=== PATIENT | female | born 1950 | race Caucasian/White ===

== ENCOUNTER 2016-07-13 17:25 | Emergency (ER) | payer MEDICARE, MEDICAID, OTHER ==
--- NOTE | 2016-07-13 18:59 | ED Physician Chart ---
Chief Complaint/HPI - Patient Information Date Seen:: 07/13/16 Time Seen:: 18:35 Chief Complaint:: sensation of impending syncope History of Present Illness:: patient developed sensation of impending syncope and blurred vision which she considered to be a hypoglycemic reaction and then took two packs of sugar. No low blood sugar documented. Accucheck here 106. Allergies:: Allergies Allergy/AdvReac Type Severity Reaction Status Date / Time erythromycin base Allergy Verified 07/13/16 17:38 Penicillins Allergy Verified 07/13/16 17:39 Sulfa (Sulfonamide Allergy Verified 07/13/16 17:38 Antibiotics) Vitals:: Vital Signs - 8 hr 07/13/16 17:40 Temp 98.2 F HR 80 RR 19 BP 127/67 O2 Sat % 96 Historian:: Patient Review:: Nurse's Note Reviewed Review of Systems - Review of Systems General/Constitutional: No fever, No chills, Weakness Skin: No skin lesions Head: No headache Eyes: Acuity change ENT: No earache Neck: No neck pain, No swelling Cardio Vascular: No chest pain Pulmonary: No SOB GI: No nausea, No vomiting G/U: No dysuria Musculoskeletal: No bone or joint pain, No back pain Endocrine: No polyuria, No polydipsia Psychiatric: Prior psych history Hematopoietic: No bruising Allergic/Immuno: No urticaria, No angioedema Neurological: No syncope, Other (sensation of near syncope) Past Medical History - Past Medical History Past Medical History: HTN, Other (fibromyalgia) Family History: HTN, Other (rheumatoid arthritis) Social History: Smoker, Care Facility Surgical History: other (feet; back; neck) Psychiatricy History: Bipolar, Other (schizoaffective) Medication: Reviewed Physical Exam - Physical Examination General/Constitutional: Well-developed, well-nourished, Alert, No distress Head: Atraumatic Eyes: Lids, conjuctiva normal, PERRL Skin: Nl inspection, No rash, No skin lesions, No ecchymosis ENMT: External ears, nose nl, TM canals nl, Nasal exam nl, Lips, teeth, gums nl , Oropharynx nl, Tonsils nl Neck: No nuchal rigidity Respiratory: Nl effort/Exclusion, Clear to Auscultation, No Wheeze/Rhonchi/Rales Cardio Vascular: RRR, No murmur, gallop, rubs GI: No tenderness/rebounding/guarding, No organomegaly, No hernia, Normal BS's : No CVA tenderness Extremities: Normal digits & nails Neuro/Psych: No focal deficits Labs/Radiology/EKG Results - Lab Results Results: Laboratory Tests 07/13/16 17:49 POC Glucose 106 H ED Septic Shock - . Is Septic Shock (SBP<90, OR Lactate>4 mmol\L) present?: No - <6hrs of presentation: Vital Signs: Vital Signs - 8 hr 07/13/16 17:40 Temp 98.2 F HR 80 RR 19 BP 127/67 O2 Sat % 96 Reassessment (Disposition) - Reassessment Reassessment Condition:: Improved - Diagnosis Diagnosis:: hypoglycemia, resolved - Aftercare/Follow up Instructions Aftercare/Follow-Up Instructions:: Refer to Discharge Instructions - Patient Disposition Discharge/Transfer:: Residential/Boarding Care Condition at Disposition:: Stable, Improved
[2016-07-13 20:56] LABS: % EOSINOPHILS 7.6 % (0.0-5.0); % LYMPHOCYTES 38.5 % (20.0-50.0); % MONOCYTES 8.3 % (2.0-10.0); % NEUTROPHILS 44.6 % (40.0-80.0); HEMATOCRIT 39.7 % (35.0-45.0); HEMOGLOBIN 13.1 gm/dL (11.7-16.1); MEAN CELL VOLUME 82.7 fl (81-100); MEAN CORPUSCULAR HEMOGLOBIN 27.2 pg (27.0-31.0); MEAN CORPUSCULAR HGB CONC 32.9 pg (28.0-36.0); MEAN PLATELET VOLUME 8.5 fl; NEUTROPHILE ABSOLUTE 2.9 Th/cmm (1.8-8.0); PLATELET COUNT 199 Th/cmm (150-400); RED CELL DISTRIBUTION WIDTH 14.4 % (11.5-20.0); WHITE BLOOD COUNT 6.5 Th/cmm (4.8-10.8)
[2016-07-13 21:10] LABS: ANION GAP 7.3 (7.0-16.0); BUN - UREA NITROGEN 17 mg/dL (7-25); BUN/CREATININE RATIO 24.3; CALCIUM SERUM 9.3 mg/dL (8.6-10.3); CARBON DIOXIDE 29.1 mEq/L (21.0-31.0); CHLORIDE 102 mEq/L (98-107); CREATININE - SERUM 0.7 mg/dL (0.6-1.2); GLUCOSE 90 mg/dL (70-105); POTASSIUM SERUM 4.4 mEq/L (3.5-5.1); SODIUM SERUM 134 mEq/L (136-145)
== END 2016-07-13 22:05 | disposition home or self-care (01) ==
LOC: ER 17:25
DX: E16.2 Hypoglycemia, unspecified (principal); I10 Essential (primary) hypertension; F31.9 Bipolar disorder, unspecified; F25.9 Schizoaffective disorder, unspecified; M79.7 Fibromyalgia; F17.200 Nicotine dependence, unspecified, uncomplicated; Z88.0 Allergy status to penicillin; Z88.1 Allergy status to other antibiotic agents; Z88.2 Allergy status to sulfonamides
CPT/HCPCS: 36415-UA; 80048-TC; 82948-90; 85025-TC; Z7502

== ENCOUNTER 2018-06-05 17:18 | Inpatient (IN) | payer MEDICARE, MEDICAID ==
[2018-06-05 17:59] LABS: % BASOPHILS 0.7 % (0.0-2.0); % EOSINOPHILS 6.7 % (0.0-5.0); % LYMPHOCYTES 26.9 % (20.0-50.0); % MONOCYTES 8.4 % (2.0-10.0); % NEUTROPHILS 57.3 % (40.0-80.0); EOSINOPHILE ABSOLUTE 0.4 Th/cmm (0.1-0.4); HEMATOCRIT 40.7 % (41.0-60); LYMPHOCYTE ABSOLUTE 1.6 Th/cmm (1.5-3.0); MEAN CELL VOLUME 86.6 fl (81-100); MEAN CORPUSCULAR HEMOGLOBIN 29.7 pg (27.0-31.0); MEAN CORPUSCULAR HGB CONC 34.3 pg (28.0-36.0); MEAN PLATELET VOLUME 8.3 fl; MONOCYTE ABSOLUTE 0.5 Th/cmm (0.3-1.0); NEUTROPHILE ABSOLUTE 3.5 Th/cmm (1.8-8.0); PLATELET COUNT 170 Th/cmm (150-400); RED CELL DISTRIBUTION WIDTH 12.8 % (11.5-20.0)
[2018-06-05 18:14] LABS: ALB/GLOB RATIO 1.8 (1.0-1.8); ALBUMIN 3.9 gm/dL (3.7-5.3); ALKALINE PHOSPHATASE 73 U/L (34-104); ANION GAP 15.1 (7.0-16.0); BILIRUBIN,TOTAL 0.2 mg/dL (0.3-1.0); BUN - UREA NITROGEN 22 mg/dL (7-25); CALCIUM SERUM 8.8 mg/dL (8.6-10.3); CARBON DIOXIDE 22.8 mEq/L (21.0-31.0); CHLORIDE 95 mEq/L (98-107); CREATININE - SERUM 0.6 mg/dL (0.6-1.2); CREATININE KINASE 107 U/L (30-223); GFR AFRICAN-AMERICAN > 60.0 ml/min (>90); GFR NON AFRICAN-AMERICAN > 60.0 ml/min; GLUCOSE 131 mg/dL (70-105); POTASSIUM SERUM 3.9 mEq/L (3.5-5.1); SGOT 17 U/L (13-39); SGPT/ALT 9 U/L (7-52); SODIUM SERUM 129 mEq/L (136-145); TOTAL PROTEIN,SERUM 6.1 gm/dL (6.0-8.3)
[2018-06-05 18:20] LABS: TROP I < 0.01 ng/mL (0.01-0.05)
[2018-06-05 18:24] LABS: INR 0.95 (0.5-1.4); PROTHROMBIN TIME (TEST) 9.9 SECONDS (9.5-11.5)
--- NOTE | 2018-06-05 18:39 | ED Physician Chart ---
ED Chief Complaint/HPI - Patient Information Date Seen:: 06/05/18 Time Seen:: 17:50 Chief Complaint:: Agitation History of Present Illness:: onset x 3 days of agitation, aggressive behavior, and intermittent sharp, MS type LBP; no report of trauma, H/As, neck pain, cough, C/P, SOB, Abd. Pain, A/N/ V/D/C, fever, chills, or urinary s/s Allergies:: Allergies Allergy/AdvReac Type Severity Reaction Status Date / Time erythromycin base Allergy Verified 06/05/18 17:40 Penicillins Allergy Verified 06/05/18 17:40 Sulfa (Sulfonamide Allergy Verified 06/05/18 17:40 Antibiotics) Vitals:: Vital Signs - 8 hr 06/05/18 17:51 Temp 97.5 F HR 84 RR 16 BP 124/82 O2 Sat % 98 Historian:: Patient, EMS Review:: Nurse's Note Reviewed, Old Chart Reviewed, EMS run form Reviewed ED Review of Systems - Review of Systems General/Constitutional: Fever, No chills, No weight loss, Weakness, No diaphoresis, No edema, No loss of appetite Skin: No skin lesions, No rash, No bruising Head: No headache, No light-headedness Eyes: No loss of vision, No pain, No diplopia ENT: No earache, No nasal drainage, No sore throat, No tinnitus Neck: No neck pain, No swelling, No thyromegaly, No stiffness, No mass noted Cardio Vascular: No chest pain, No palpitations, No PND, No orthopnea, No edema Pulmonary: No SOB, No cough, No sputum, No wheezing GI: No nausea, No vomiting, No diarrhea, No pain, No melena, No hematochezia, No constipation, No hematemesis G/U: Dysuria, No frequency, No hematuria, No nacturia Occupational Therapy Specialist: No vaginal discharge, No abnormal vaginal bleed, No contraction Musculoskeletal: No bone or joint pain, Back pain, No muscle pain Endocrine: No polyuria, No polydipsia Psychiatric: Prior psych history, No depression, Anxiety, No suicidal ideation, No homicidal ideation, No auditory hallucination, No visual hallucination Hematopoietic: No bruising, No lymphadenopathy Allergic/Immuno: No urticaria, No angioedema Neurological: No syncope, No focal symptoms, Weakness, No paresthesia, No headache, No seizure, No dizziness, Confusion, No vertigo ED Past Medical History - Past Medical History Obtainable: Yes Past Medical History: HTN, DM, CAD, Dyslipidemia, PUD/GERD, Arthritis, Dementia Family History: HTN Social History: Non Smoker, No Alcohol, No Drug Use, Single, Care Facility Surgical History: None, other (Back Surgery) Psychiatricy History: Bipolar, Dementia Medication: Reviewed Family Medical History - Family Member Mother History Unknown: Yes ED Physical Exam - Physical Examination General/Constitutional: Awake, Well-developed, well-nourished, Alert, No distress, GCS 15, Non-toxic appearing, Ambulatory Head: Atraumatic Eyes: Lids, conjuctiva normal, PERRL, EOMI Skin: Nl inspection, No rash, No skin lesions, No ecchymosis, Well hydrated, No lymphadenopathy ENMT: External ears, nose nl, TM canals nl, Nasal exam nl, Lips, teeth, gums nl , Oropharynx nl, Tonsils nl Neck: Nontender, Full ROM w/o pain, No JVD, No nuchal rigidity, No bruit, No mass, No stridor Respiratory: Nl effort/Exclusion, Clear to Auscultation, No Wheeze/Rhonchi/Rales Cardio Vascular: RRR, No murmur, gallop, rubs, NL S1 S2, Carotid/Femoral/Distal pulses equal bilaterally GI: No tenderness/rebounding/guarding, No organomegaly, No hernia, Normal BS's, Nondistended, No mass/bruits, No McBurney tenderness Other GI comments:: no pulsatile masses; good BS : No CVA tenderness Extremities: No tenderness or effusion, Full ROM, normal strength in all extremities, No edema, Normal digits & nails Neuro/Psych: Alert/oriented, DTR's symmetric, Normal sensory exam, Normal motor strength, Judgement/insight normal, Mood normal, Normal gait, No focal deficits Other Neuro/Psych comments:: + Psychomotor Agitation; no SIs; Mood/Affect: Labile Misc: Normal back, No paraspinal tenderness ED Labs/Radiology/EKG Results - Lab Results Results: Laboratory Tests 06/05/18 06/05/18 06/05/18 17:40 17:40 17:40 WBC 6.0 RBC 4.70 Hgb 14.0 Hct 40.7 L MCV 86.6 MCH 29.7 MCHC Differential 34.3 RDW 12.8 Plt Count 170 MPV 8.3 Neutrophils % 57.3 Lymphocytes % 26.9 Monocytes % 8.4 Eosinophils % 6.7 H Basophils % 0.7 PT 9.9 INR 0.95 PTT (Actin FS) 26.5 Sodium 129 L Potassium 3.9 Chloride 95 L Carbon Dioxide 22.8 Anion Gap 15.1 BUN 22 Creatinine 0.6 Est GFR ( Amer) > 60.0 Est GFR (Non-Af Amer) > 60.0 BUN/Creatinine Ratio 36.7 Glucose 131 H Whole Bld Lactic Acid Calcium 8.8 Total Bilirubin 0.2 L AST 17 ALT 9 Alkaline Phosphatase 73 Creatine Kinase 107 Troponin I Total Protein 6.1 Albumin 3.9 Globulin 2.2 Albumin/Globulin Ratio 1.8 06/05/18 17:40 WBC RBC Hgb Hct MCV MCH MCHC Differential RDW Plt Count MPV Neutrophils % Lymphocytes % Monocytes % Eosinophils % Basophils % PT INR PTT (Actin FS) Sodium Potassium Chloride Carbon Dioxide Anion Gap BUN Creatinine Est GFR ( Amer) Est GFR (Non-Af Amer) BUN/Creatinine Ratio Glucose Whole Bld Lactic Acid 2.05 H* Calcium Total Bilirubin AST ALT Alkaline Phosphatase Creatine Kinase Troponin I < 0.01 L Total Protein Albumin Globulin Albumin/Globulin Ratio Comments:: Reviewed - Radiology Results Comments:: NAD - EKG Interpretations EKG Time:: 17:46 Rate & Rhythm: 78; NSR Comments:: T-Wave Inversions; non-specific st-t changes ED Septic Shock - . Is Septic Shock (SBP<90, OR Lactate>4 mmol\L) present?: No - <6hrs of presentation: Vital Signs: Vital Signs - 8 hr 06/05/18 17:51 Temp 97.5 F HR 84 RR 16 BP 124/82 O2 Sat % 98 ED Reassessment (Disposition) - Reassessment Reassessment Condition:: Improved - Diagnosis Diagnosis:: Myocardial Ischemia; Hyponatremia; Hyperglycemia; Lactic Acidosis; DM; HTN; Dementia; UTI; Dehydration; Medical Clearance; Agitation; Psychosis; Anxiety Disorder; BiPolar Disorder - Aftercare/Follow up Instructions Aftercare/Follow-Up Instructions:: Counseled pt regarding lab results/diagnosis & need follow up, Counseled pt & family regarding lab results/diagnosis & need follow up - Patient Disposition Discharge/Transfer:: Acute Care w/in this hosp Admitted to:: [facility] Condition at Disposition:: Stable, Improved
[2018-06-05 19:29] LABS: URINE SOURCE MIDSTREAM
[2018-06-05 19:34] LABS: URINE BILIRUBIN NEGATIVE (NEGATIVE); URINE BLOOD NEGATIVE (NEGATIVE); URINE GLUCOSE (UA) NEGATIVE (NEGATIVE); URINE KETONE NEGATIVE (NEGATIVE); URINE LEUKOCYTE ESTERASE NEGATIVE (NEGATIVE); URINE NITRATE NEGATIVE (NEGATIVE); URINE PH 6.5 (4.6 - 8.0); URINE PROTEIN NEGATIVE (NEGATIVE); URINE UROBILINOGEN 0.2 E.U./dL (0.2 - 1.0)
[2018-06-05 19:44] LABS: URINE CLARITY CLEAR (CLEAR); URINE COLOR YELLOW; URINE MICROSCOPIC INDICATED? YES
[2018-06-05 19:48] LABS: URINE BACTERIA FEW /hpf (NONE SEEN); URINE EPITHELIAL CELLS FEW /lpf (FEW); URINE RBC 0-2 /hpf (0-5); URINE WBC 0-2 /hpf (0-5)
[2018-06-05] MEDS ORDERED: Levofloxacin 500mg/100mL 500 MG/100 ML BAG IV ONE ×2 (19:54→20:07)
[2018-06-05] MEDS ORDERED: Hydrocodone/APAP 5mg/325mg Tab PO ONE (20:28)
[2018-06-05] MEDS ORDERED: Hydrocodone/APAP 5mg/325mg Tab ONE (20:36)
[2018-06-05 23:36] VITALS: BP 138/91
[2018-06-06] MEDS: INSULIN ASPART SLIDING SCALE 100 UNITS/ML UNIT SUBQ SCH ×4 (06:40→20:59)
[2018-06-06] MEDS: Pantoprazole 40 mg EC Tab PO SCH (07:01)
[2018-06-06 07:18] LABS: CHOLESTEROL 207 mg/dL (<200); TRIGLYCERIDES 243 mg/dL (<150)
--- NOTE | 2018-06-06 07:57 | Diagnostic Imaging Report ---
CT lumbar spine without IV contrast HISTORY: Back pain, rule out aortic aneurysm COMPARISON: None Technique: Axial images were obtained from the lower thoracic spine to the upper sacrum without IV contrast. Reconstructions were made. total DLP: [id number], [id number] Findings: Streak artifact from surgical hardware limits the examination. There is evidence of posterior fusion extending from L3 through S1 with intrapedicular screws and vertical rods. There are also disc spacers extending from L3 through S1. There is evidence of fracture of the left S1 interpedicular screw and also probable fracture of the right interpedicular S1 screw. No abnormal lucencies surrounding the hardware. No gross osseous fracture identified. Extensive multilevel degenerative changes are seen including advanced disc space loss of height at L1/L2 with diffuse endplate sclerotic changes and vacuum phenomena. There is also 2 mm retrolisthesis of L1 on L2 and 2 mm anterolisthesis of L5 on S1. Limited assessment of the abdominal aorta demonstrates no gross aneurysm based on images provided. Moderate atherosclerosis is noted. Degenerative changes of the SI joints are noted. IMPRESSION: Evidence of posterior spinal fusion extending from L3 through S1 with streak artifact limiting the examination. There is fracture of the left S1 interpedicular screw and probable additional fracture or right S1 interpedicular screw. Findings are age indeterminate and may be chronic. Please correlate with clinical history and old exams. No evidence of an acute osseous fracture. Extensive degenerative changes most pronounced at L1/L2 with extensive endplate sclerotic changes. 2 mm retrolisthesis of L1 on L2 and additional 2 mm anterolisthesis of L5 on S1 likely due to combination of degenerative etiologies and postsurgical sequela. Moderate atherosclerosis is noted with no gross aneurysm identified. If necessary follow-up exam such as CT angiography may be obtained.
[2018-06-06 08:18] LABS: HDL -HIGH DENSITY LIPOPROTEIN 74 mg/dL (23-92)
--- NOTE | 2018-06-06 08:33 | Diagnostic Imaging Report ---
Portable chest x-ray History: Pain Allowing for portable technique the heart size is normal. No focal pulmonary parenchymal processes. No hilar or mediastinal abnormalities. Surgical changes seen within the cervical spine. Impression: No acute abnormalities.
--- NOTE | 2018-06-06 15:20 | History & Physical ---
ADMIT DATE: 06/06/2018 CHIEF COMPLAINT: Increased agitation. HISTORY OF PRESENT ILLNESS: This is a 68-year-old patient female with history of diabetes, hypertension, CAD, hypercholesterolemia, GERD, Alzheimer's. ____ Dr. Bronson. The patient is not a best historian, complaining of back pain. Denies chest pain, shortness of breath. PAST MEDICAL HISTORY: As mentioned in history of present illness. PAST SURGICAL HISTORY: Multiple surgeries including back, neck as well as a foot surgery. ALLERGIES: ERYTHROMYCIN, PENICILLIN AND SULFA. MEDICATIONS: Amlodipine, BuSpar, Depakote, Aricept, duloxetine, gabapentin, ibuprofen, insulin Lantus, Namenda, omeprazole, Seroquel, temazepam. FAMILY HISTORY: Noncontributory. 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 No intravenous drug use. The patient did lot of job including nursing according to the patient, one time with many children, and cannot tell me how many. REVIEW OF SYSTEMS: GENERAL: The patient denies any constitutional symptoms. HEENT: No blurred vision or pain. LUNGS: No diagnosis of COPD or asthma. Chronic smoker. HEART: The patient with hypertension and CAD. ABDOMEN: No nausea, vomiting, pain. GENITOURINARY: The patient denies increased frequency or dysuria. NEUROLOGIC: No headache, seizure or syncope. PSYCHIATRIC: As stated above. PHYSICAL EXAMINATION: VITAL SIGNS: Blood pressure 146/90, respirations 20, pulse 80, temperature 97.6. GENERAL: Elderly female, morbidly obese. NECK: Supple. No mass. LUNGS: Equal breath sounds, otherwise clear to auscultation. HEART: Regular rate and rhythm with systolic ejection murmur. ABDOMEN: Soft, guarded. EXTREMITIES: Positive excoriation. NEUROLOGIC: Limited. LABORATORY DATA: WBC 6, hemoglobin 14, platelets 170. PT, PTT within normal range. Sodium 129, potassium 3.9, BUN 22, creatinine 0.6. Troponin was negative. Cholesterol 207, triglycerides 243. UA essentially negative. ASSESSMENT AND PLAN: Coronary artery disease, diabetes, obesity, hypertension, hypercholesterolemia, gastroesophageal reflux disease, Alzheimer's, psych disorder, hyponatremia, low back pain. We will provide the patient with some medical treatment including ____ drugs as well as bronchodilator treatment. Continue on blood pressure medication. We will make some adjustment and continue on insulin sliding scale. Continue with current care. We will follow the patient closely. Medications were reconciled. [facility]# [id number]
--- NOTE | 2018-06-06 22:58 | Psychiatric Evaluation ---
DATE OF SERVICE: 06/06/2018 PSYCHIATRIC EVALUATION AND EXAMINATION IDENTIFYING DATA: The patient is a 68-year-old woman, resident of a [facility]. Information obtained by directly interviewing the patient as well as reviewing the admission papers and they are reliable. JUSTIFICATION OF HOSPITALIZATION: The patient has been admitted over here for depression and psychosis. CHIEF COMPLAINT: "I am having mood swings and feeling frustrated, I am depressed, I am bipolar, I am schizophrenic, I need some help." HISTORY OF PRESENT ILLNESS: This is one of multiple psychiatric hospitalizations for this patient, who has been diagnosed to have schizoaffective disorder and is being followed up by Dr. Garcia at [facility]. The patient is reporting that even though she has been on the current medications such as the Depakote, BuSpar, duloxetine, gabapentin, and Seroquel, she has been feeling well and has been feeling frustrated. The patient is reported to have been very paranoid and has been going off stating that someone is out there to harm her. The patient is also reported to have multiple medical problems such as diabetes, hypertension, coronary artery disease, hypercholesterolemia, and GERD. The patient is complaining that she is having pain all over the body. PAST PSYCHIATRIC HISTORY: Please refer to the above. The patient was here in the hospital, under Dr. Garcia's care before. MEDICAL HISTORY AND PHYSICAL EXAMINATION: Requested to be done by Dr. Flores and is noted to be significant for diabetes mellitus, hypertension, coronary artery disease, hypercholesterolemia, and GERD. SUBSTANCE ABUSE HISTORY: None. SOCIAL HISTORY: The patient is a resident of the half-way facility. The patient is stating that she has children all over, but has not any contact with them. STRENGTH AND ASSETS: The patient is motivated. MENTAL STATUS EXAMINATION: The patient is a 68-year-old, looking her stated age, cooperative. Eye contact is fair. Mood is noted to be irritable. Affect is constricted. Insight and judgment at this time are noted to be still impaired. Impulse control is noted to be limited. The patient has paranoid delusions, but denies any command hallucinations. The patient is stating that she is feeling more depressed at this time. The patient is alert and oriented x 3. Short-term and long-term memory appear to be fair. DIAGNOSTIC IMPRESSION: AXIS I: Schizoaffective disorder by history. AXIS II: None. AXIS III: As per Dr. Flores. IMMEDIATE TREATMENT PLAN: The patient is going to be observed on the inpatient unit. Provided with supportive psychotherapy. The patient is going to be closely monitored. We encouraged to verbalize the concerns rather than to act out. Once stabilized, the patient is going to be discharged to [facility] to be followed up on an outpatient basis. JOB# [id number]
[2018-06-07] MEDS: INSULIN ASPART SLIDING SCALE 100 UNITS/ML UNIT SUBQ SCH ×5 (06:52→21:14)
[2018-06-07] MEDS: Pantoprazole 40 mg EC Tab PO SCH (06:54)
--- NOTE | 2018-06-07 09:30 | Progress Notes ---
DATE: 06/07/2018 PSYCHIATRIC PROGRESS NOTE SUBJECTIVE: Staff was spoken to. The patient is interviewed. Mood is noted to be irritable. Affect is constricted. The patient is isolative and withdrawn. Insight and judgment at this time are noted to be still impaired. The patient is stating that she has been having pain all over the body. The patient is isolative and withdrawn. The patient is currently on valproic acid 250 mg twice a day and duloxetine 30 mg. In view of the patient's continued depression, I am planning to change the duloxetine to 60 mg and the patient is going to be closely monitored. The patient is stating that her mouth is very, very dry and could not tolerate too many medications and hence it is decided to discontinue the BuSpar and continue the patient with a low dose of Ativan and follow her up. ASSESSMENT: The patient is still depressed and feeling frustrated and is not ready to be discharged to a lower level of care. PLAN: To continue the patient with supportive therapy. I encouraged the patient to verbalize the concerns rather than to act out. JOB# [id number]
--- NOTE | 2018-06-07 13:37 | Internal Medicine Prog Note ---
Internal Medicine Subjective - Subjective Patient seen and examined:: with staff, chart reviewed Patient is:: awake, verbal, non-interactive Per staff patient has:: no adverse event, no episodes of fall, poor appetite, tolerating meds Internal Medicine Objective - Results Result Diagrams: 06/05/18 17:40 06/05/18 17:40 Recent Labs: Laboratory Last Values WBC 6.0 Th/cmm (4.8-10.8) 06/05/18 17:40 RBC 4.70 Mil/cmm (3.80-5.20) 06/05/18 17:40 Hgb 14.0 gm/dL (12-16) 06/05/18 17:40 Hct 40.7 % (41.0-60) L 06/05/18 17:40 MCV 86.6 fl (81-100) 06/05/18 17:40 MCH 29.7 pg (27.0-31.0) 06/05/18 17:40 MCHC Differential 34.3 pg (28.0-36.0) 06/05/18 17:40 RDW 12.8 % (11.5-20.0) 06/05/18 17:40 Plt Count 170 Th/cmm (150-400) 06/05/18 17:40 MPV 8.3 fl 06/05/18 17:40 Neutrophils % 57.3 % (40.0-80.0) 06/05/18 17:40 Lymphocytes % 26.9 % (20.0-50.0) 06/05/18 17:40 Monocytes % 8.4 % (2.0-10.0) 06/05/18 17:40 Eosinophils % 6.7 % (0.0-5.0) H 06/05/18 17:40 Basophils % 0.7 % (0.0-2.0) 06/05/18 17:40 PT 9.9 SECONDS (9.5-11.5) 06/05/18 17:40 INR 0.95 (0.5-1.4) 06/05/18 17:40 PTT (Actin FS) 26.5 SECONDS (26.0-38.0) 06/05/18 17:40 Sodium 129 mEq/L (136-145) L 06/05/18 17:40 Potassium 3.9 mEq/L (3.5-5.1) 06/05/18 17:40 Chloride 95 mEq/L (98-107) L 06/05/18 17:40 Carbon Dioxide 22.8 mEq/L (21.0-31.0) 06/05/18 17:40 Anion Gap 15.1 (7.0-16.0) 06/05/18 17:40 BUN 22 mg/dL (7-25) 06/05/18 17:40 Creatinine 0.6 mg/dL (0.6-1.2) 06/05/18 17:40 Est GFR ( Amer) > 60.0 ml/min (>90) 06/05/18 17:40 Est GFR (Non-Af Amer) > 60.0 ml/min 06/05/18 17:40 BUN/Creatinine Ratio 36.7 06/05/18 17:40 Glucose 131 mg/dL (70-105) H 06/05/18 17:40 POC Glucose 85 MG/DL (70 - 105) 06/07/18 06:04 Whole Bld Lactic Acid 2.06 mmol/L (0.60-1.99) H* 06/05/18 20:36 Calcium 8.8 mg/dL (8.6-10.3) 06/05/18 17:40 Total Bilirubin 0.2 mg/dL (0.3-1.0) L 06/05/18 17:40 AST 17 U/L (13-39) 06/05/18 17:40 ALT 9 U/L (7-52) 06/05/18 17:40 Alkaline Phosphatase 73 U/L (34-104) 06/05/18 17:40 Creatine Kinase 107 U/L (30-223) 06/05/18 17:40 Troponin I < 0.01 ng/mL (0.01-0.05) L 06/05/18 17:40 Total Protein 6.1 gm/dL (6.0-8.3) 06/05/18 17:40 Albumin 3.9 gm/dL (3.7-5.3) 06/05/18 17:40 Globulin 2.2 gm/dL 06/05/18 17:40 Albumin/Globulin Ratio 1.8 (1.0-1.8) 06/05/18 17:40 Triglycerides 243 mg/dL (<150) H 06/05/18 17:40 Cholesterol 207 mg/dL (<200) H 06/05/18 17:40 LDL Cholesterol Direct 124 mg/dL (75-193) 06/05/18 17:40 HDL Cholesterol 74 mg/dL (23-92) 06/05/18 17:40 Urine Source MIDSTREAM 06/05/18 18:30 Urine Color YELLOW 06/05/18 18:30 Urine Clarity CLEAR (CLEAR) 06/05/18 18:30 Urine pH 6.5 (4.6 - 8.0) 06/05/18 18:30 Ur Specific [place] 1.010 (1.005-1.030) 06/05/18 18:30 Urine Protein NEGATIVE mg/dL (NEGATIVE) 06/05/18 18:30 Urine Glucose (UA) NEGATIVE mg/dL (NEGATIVE) 06/05/18 18:30 Urine Ketones NEGATIVE mg/dL (NEGATIVE) 06/05/18 18:30 Urine Blood NEGATIVE (NEGATIVE) 06/05/18 18:30 Urine Nitrate NEGATIVE (NEGATIVE) 06/05/18 18:30 Urine Bilirubin NEGATIVE (NEGATIVE) 06/05/18 18:30 Urine Urobilinogen 0.2 E.U./dL (0.2 - 1.0) 06/05/18 18:30 Ur Leukocyte Esterase NEGATIVE (NEGATIVE) 06/05/18 18:30 Urine RBC 0-2 /hpf (0-5) 06/05/18 18:30 Urine WBC 0-2 /hpf (0-5) 06/05/18 18:30 Ur Epithelial Cells FEW /lpf (FEW) 06/05/18 18:30 Urine Bacteria FEW /hpf (NONE SEEN) 06/05/18 18:30 - Physical Exam Vitals and I&O: Vital Signs Temp 0 F 06/07/18 06:03 Pulse 72 06/07/18 10:00 Resp 18 06/06/18 20:14 BP 149/92 06/07/18 10:00 Pulse Ox 96 06/06/18 20:14 Intake & Output 06/06/18 06/07/18 06/07/18 18:59 06:59 18:59 Intake Total 1300 120 Output Total 1 Balance 1300 119 Weight (lbs) 68.039 kg Intake: Oral 1300 120 Output: Urine/Stool Mix 1 Other: # Voids 3 3 # Bowel Movements 0 0 Weight Source Bedscale Active Medications: Current Medications Amlodipine Besylate (Norvasc) 5 mg PO DAILY [facility] Stop: 08/05/18 08:59 Last Admin: 06/07/18 10:00 Dose: 5 mg Divalproex Sodium (Depakote Dr) 250 mg PO BID [facility]; Protocol Stop: 08/05/18 08:59 Last Admin: 06/07/18 08:58 Dose: 250 mg Donepezil HCl (Aricept) 10 mg PO HS [facility] Stop: 08/05/18 20:59 Last Admin: 06/06/18 20:58 Dose: 10 mg Duloxetine HCl (Cymbalta) 60 mg PO DAILY [facility]; Protocol Stop: 08/06/18 08:59 Last Admin: 06/07/18 08:57 Dose: 60 mg Gabapentin (Neurontin) 100 mg PO TID [facility] Stop: 08/05/18 08:59 Last Admin: 06/07/18 08:58 Dose: 100 mg Ibuprofen (Motrin) 800 mg PO Q6H PRN PRN Reason: Pain (Severe) Stop: 08/05/18 00:30 Last Admin: 06/07/18 09:10 Dose: 800 mg Insulin Aspart (Novolog Insulin Sliding Scale) 0 units SUBQ ACHS [facility]; Protocol Stop: 08/05/18 07:29 Last Admin: 06/07/18 12:16 Dose: Not Given Lorazepam (Ativan) 0.5 mg PO Q4HR PRN; Protocol PRN Reason: Anxiety Stop: 07/06/18 00:24 Last Admin: 06/07/18 10:17 Dose: 0.5 mg Memantine (Namenda) 10 mg PO DAILY [facility] Stop: 08/05/18 08:59 Last Admin: 06/07/18 08:58 Dose: 10 mg Pantoprazole Sodium (Protonix) 40 mg PO QDAC [facility] Stop: 08/05/18 07:29 Last Admin: 06/07/18 06:54 Dose: 40 mg Quetiapine Fumarate (Seroquel) 100 mg PO BID [facility]; Protocol Stop: 08/05/18 08:59 Last Admin: 06/07/18 08:58 Dose: 100 mg Temazepam (Restoril) 15 mg PO HS [facility]; Protocol Stop: 08/05/18 20:59 Last Admin: 06/06/18 20:58 Dose: 15 mg General: alert HEENT: NC/AT, PERRLA, EOMI Neck: Supple, No JVD Lungs: CTAB Cardiovascular: RRR, Normal S1, Normal S2, with murmur Abdomen: soft, non-tender, globular Extremities: excoriation Neurological: no change Internal Medicine Assmt/Plan - Assessment Assessment: ASSESSMENT AND PLAN: Coronary artery disease, diabetes, obesity, hypertension, hypercholesterolemia, gastroesophageal reflux disease, Alzheimer's, psych disorder, hyponatremia, low back pain. - Plan Plan: We will provide the patient with some medical treatment including bronchodilator treatment. Continue on blood pressure medication. We will make some adjustment and continue on insulin sliding scale. Continue with current care. We will follow the patient closely. Medications were reconciled.
[2018-06-08] MEDS: Pantoprazole 40 mg EC Tab PO SCH (06:32)
[2018-06-08] MEDS: INSULIN ASPART SLIDING SCALE 100 UNITS/ML UNIT SUBQ SCH ×4 (06:42→20:58)
--- NOTE | 2018-06-08 15:01 | Internal Medicine Prog Note ---
Internal Medicine Subjective - Subjective Patient seen and examined:: with staff, chart reviewed Patient is:: awake, verbal, non-interactive Per staff patient has:: no adverse event, no episodes of fall, poor appetite, tolerating meds Internal Medicine Objective - Results Result Diagrams: 06/05/18 17:40 06/05/18 17:40 Recent Labs: Laboratory Last Values WBC 6.0 Th/cmm (4.8-10.8) 06/05/18 17:40 RBC 4.70 Mil/cmm (3.80-5.20) 06/05/18 17:40 Hgb 14.0 gm/dL (12-16) 06/05/18 17:40 Hct 40.7 % (41.0-60) L 06/05/18 17:40 MCV 86.6 fl (81-100) 06/05/18 17:40 MCH 29.7 pg (27.0-31.0) 06/05/18 17:40 MCHC Differential 34.3 pg (28.0-36.0) 06/05/18 17:40 RDW 12.8 % (11.5-20.0) 06/05/18 17:40 Plt Count 170 Th/cmm (150-400) 06/05/18 17:40 MPV 8.3 fl 06/05/18 17:40 Neutrophils % 57.3 % (40.0-80.0) 06/05/18 17:40 Lymphocytes % 26.9 % (20.0-50.0) 06/05/18 17:40 Monocytes % 8.4 % (2.0-10.0) 06/05/18 17:40 Eosinophils % 6.7 % (0.0-5.0) H 06/05/18 17:40 Basophils % 0.7 % (0.0-2.0) 06/05/18 17:40 PT 9.9 SECONDS (9.5-11.5) 06/05/18 17:40 INR 0.95 (0.5-1.4) 06/05/18 17:40 PTT (Actin FS) 26.5 SECONDS (26.0-38.0) 06/05/18 17:40 Sodium 129 mEq/L (136-145) L 06/05/18 17:40 Potassium 3.9 mEq/L (3.5-5.1) 06/05/18 17:40 Chloride 95 mEq/L (98-107) L 06/05/18 17:40 Carbon Dioxide 22.8 mEq/L (21.0-31.0) 06/05/18 17:40 Anion Gap 15.1 (7.0-16.0) 06/05/18 17:40 BUN 22 mg/dL (7-25) 06/05/18 17:40 Creatinine 0.6 mg/dL (0.6-1.2) 06/05/18 17:40 Est GFR ( Amer) > 60.0 ml/min (>90) 06/05/18 17:40 Est GFR (Non-Af Amer) > 60.0 ml/min 06/05/18 17:40 BUN/Creatinine Ratio 36.7 06/05/18 17:40 Glucose 131 mg/dL (70-105) H 06/05/18 17:40 POC Glucose 81 MG/DL (70 - 105) 06/08/18 11:58 Whole Bld Lactic Acid 2.06 mmol/L (0.60-1.99) H* 06/05/18 20:36 Calcium 8.8 mg/dL (8.6-10.3) 06/05/18 17:40 Total Bilirubin 0.2 mg/dL (0.3-1.0) L 06/05/18 17:40 AST 17 U/L (13-39) 06/05/18 17:40 ALT 9 U/L (7-52) 06/05/18 17:40 Alkaline Phosphatase 73 U/L (34-104) 06/05/18 17:40 Creatine Kinase 107 U/L (30-223) 06/05/18 17:40 Troponin I < 0.01 ng/mL (0.01-0.05) L 06/05/18 17:40 Total Protein 6.1 gm/dL (6.0-8.3) 06/05/18 17:40 Albumin 3.9 gm/dL (3.7-5.3) 06/05/18 17:40 Globulin 2.2 gm/dL 06/05/18 17:40 Albumin/Globulin Ratio 1.8 (1.0-1.8) 06/05/18 17:40 Triglycerides 243 mg/dL (<150) H 06/05/18 17:40 Cholesterol 207 mg/dL (<200) H 06/05/18 17:40 LDL Cholesterol Direct 124 mg/dL (75-193) 06/05/18 17:40 HDL Cholesterol 74 mg/dL (23-92) 06/05/18 17:40 Urine Source MIDSTREAM 06/05/18 18:30 Urine Color YELLOW 06/05/18 18:30 Urine Clarity CLEAR (CLEAR) 06/05/18 18:30 Urine pH 6.5 (4.6 - 8.0) 06/05/18 18:30 Ur Specific [place] 1.010 (1.005-1.030) 06/05/18 18:30 Urine Protein NEGATIVE mg/dL (NEGATIVE) 06/05/18 18:30 Urine Glucose (UA) NEGATIVE mg/dL (NEGATIVE) 06/05/18 18:30 Urine Ketones NEGATIVE mg/dL (NEGATIVE) 06/05/18 18:30 Urine Blood NEGATIVE (NEGATIVE) 06/05/18 18:30 Urine Nitrate NEGATIVE (NEGATIVE) 06/05/18 18:30 Urine Bilirubin NEGATIVE (NEGATIVE) 06/05/18 18:30 Urine Urobilinogen 0.2 E.U./dL (0.2 - 1.0) 06/05/18 18:30 Ur Leukocyte Esterase NEGATIVE (NEGATIVE) 06/05/18 18:30 Urine RBC 0-2 /hpf (0-5) 06/05/18 18:30 Urine WBC 0-2 /hpf (0-5) 06/05/18 18:30 Ur Epithelial Cells FEW /lpf (FEW) 06/05/18 18:30 Urine Bacteria FEW /hpf (NONE SEEN) 06/05/18 18:30 - Physical Exam Vitals and I&O: Vital Signs Temp 98.2 F 06/08/18 14:00 Pulse 73 06/08/18 14:00 Resp 18 06/08/18 14:00 BP 126/84 06/08/18 14:00 Pulse Ox 96 06/08/18 14:00 Intake & Output 06/07/18 06/08/18 06/08/18 18:59 06:59 18:59 Intake Total 1200 Balance 1200 Intake: Oral 1200 Other: # Bowel Movements 1 Stool Characteristics Formed Brown Active Medications: Current Medications Amlodipine Besylate (Norvasc) 5 mg PO DAILY [facility] Stop: 08/05/18 08:59 Last Admin: 06/08/18 09:24 Dose: 5 mg Divalproex Sodium (Depakote Dr) 250 mg PO BID [facility]; Protocol Stop: 08/05/18 08:59 Last Admin: 06/08/18 09:25 Dose: 250 mg Donepezil HCl (Aricept) 10 mg PO HS [facility] Stop: 08/05/18 20:59 Last Admin: 06/07/18 21:07 Dose: 10 mg Duloxetine HCl (Cymbalta) 60 mg PO DAILY [facility]; Protocol Stop: 08/06/18 08:59 Last Admin: 06/08/18 09:24 Dose: 60 mg Gabapentin (Neurontin) 100 mg PO TID [facility] Stop: 08/05/18 08:59 Last Admin: 06/08/18 13:40 Dose: 100 mg Ibuprofen (Motrin) 800 mg PO Q6H PRN PRN Reason: Pain (Severe) Stop: 08/05/18 00:30 Last Admin: 06/08/18 13:40 Dose: 800 mg Insulin Aspart (Novolog Insulin Sliding Scale) 0 units SUBQ ACHS [facility]; Protocol Stop: 08/05/18 07:29 Last Admin: 06/08/18 12:07 Dose: Not Given Lorazepam (Ativan) 0.5 mg PO Q4HR PRN; Protocol PRN Reason: Anxiety Stop: 07/06/18 00:24 Last Admin: 06/08/18 05:34 Dose: 0.5 mg Memantine (Namenda) 10 mg PO DAILY [facility] Stop: 08/05/18 08:59 Last Admin: 06/08/18 09:24 Dose: 10 mg Pantoprazole Sodium (Protonix) 40 mg PO QDAC [facility] Stop: 08/05/18 07:29 Last Admin: 06/08/18 06:32 Dose: 40 mg Quetiapine Fumarate (Seroquel) 100 mg PO BID [facility]; Protocol Stop: 08/05/18 08:59 Last Admin: 06/08/18 09:24 Dose: 100 mg Temazepam (Restoril) 15 mg PO HS [facility]; Protocol Stop: 08/05/18 20:59 Last Admin: 06/07/18 21:07 Dose: 15 mg General: alert HEENT: NC/AT, PERRLA, EOMI Neck: Supple, No JVD Lungs: CTAB Cardiovascular: RRR, Normal S1, Normal S2, with murmur Abdomen: soft, non-tender, globular Extremities: excoriation Neurological: no change Internal Medicine Assmt/Plan - Assessment Assessment: ASSESSMENT AND PLAN: Coronary artery disease, diabetes, obesity, hypertension, hypercholesterolemia, gastroesophageal reflux disease, Alzheimer's, psych disorder, hyponatremia, low back pain. - Plan Plan: We will provide the patient with some medical treatment including bronchodilator treatment. Continue on blood pressure medication. We will make some adjustment and continue on insulin sliding scale. Continue with current care. We will follow the patient closely. Medications were reconciled. Nutritional Asmnt/Malnutr-PDOC - Dietary Evaluation Malnutrition Findings (Please click <Entered> for more info): Nutritional Asmnt/Malnutrition Start: 06/08/18 10: 50 Text: Status: Active Freq: Protocol: Document 06/08/18 10:50 MMULISMAEL (Rec: 06/08/18 11:06 MMULISMAEL LUTHER- [id number]) Nutritional Asmnt/Malnutrition Patient General Information Nutritional Screening Moderate Risk Diagnosis Psychosis Pertinent Medical Hx/Surgical Hx diabetes, hypertension, CAD, Hypercholesterolemia, GERD, Alzheimers Current Diet Order/ Nutrition Support Regular, NCS Patient / S.O Not Indicated Pertinent Medications Novolog, Protonix Pertinent Labs (06/05) Na 129, TAG 243, Cholesterol 207 Nutritional Hx/Data Height 1.68 m Height (Calculated Centimeters) 167.6 Current Weight (lbs) 68.039 kg Weight (Calculated Kilograms) 68.0 Weight (Calculated Grams) [address]50.9 [place] Body Weight 130 % [place] Body Weight 115 Body Mass Index (BMI) 24.2 Weight Status Approriate GI Symptoms GI Symptoms None Last BM 06/07 x1 Difficult in: None Food Allergies No Cultural/Ethnic/Temple Belief none indicated Skin Integrity/Comment: Robert 19, intact Current %PO Good (75-100%) Estimated Nutritional Goals BEE in Kcals: Using Current wt Calories/Kcals/Kg 25-30 kcal/kg (using CBW 68. 1kg) Kcals Calculated ~6820-2049 kcal/day Protein g/kg: .8-1 gm/kg Protein Calculated ~55-65 gm/day Fluid: ml ~3749-6636 ml/day Nutritional Problem 1. Problem Problem Altered nutrition related lab values related to Etiology electrolyte imbalance, possible excessive cholesterol intake aeb Signs/Symptoms: TAG 243, cholesterol 207, Na 129 Intervention/Recommendation Comments 1. Consider modifying diet to cardiac, NCS, as tolerated by patient. 2. Consider re-checking Na level; if still hyponatremic, consider fluid restriction. Expected Outcomes/Goals Expected Outcomes/Goals Na, cholesterol and TAG normalize, weight stable, oral intake >75% of meals, skin remains intact.
--- NOTE | 2018-06-08 23:48 | Progress Notes ---
DATE: 06/08/2018 PSYCHIATRIC PROGRESS NOTE SUBJECTIVE: Staff was spoken to. The patient is interviewed. Mood is noted to be irritable. Affect is constricted. Insight and judgment at this time are noted to be still impaired. Impulse control is noted to be limited. Coping skills are noted to be limited. The patient has been having difficult time to cope with the stress. The patient is complaining of pain all over the body. The patient is currently on duloxetine, which was increased to 60 mg and Seroquel has been given at 100 mg twice a day. ASSESSMENT: The patient is still depressed. PLAN: To continue the patient with the current medications. I encouraged the patient to verbalize the concerns rather than to act out. JOB# [id number]
[2018-06-09] MEDS: INSULIN ASPART SLIDING SCALE 100 UNITS/ML UNIT SUBQ SCH ×4 (06:44→21:18)
[2018-06-09] MEDS: Pantoprazole 40 mg EC Tab PO SCH (06:45)
--- NOTE | 2018-06-09 13:05 | Internal Medicine Prog Note ---
Internal Medicine Subjective - Subjective Patient seen and examined:: with staff, chart reviewed, other (co itching) Patient is:: awake, verbal, non-interactive Per staff patient has:: no adverse event, no episodes of fall, poor appetite, tolerating meds Internal Medicine Objective - Results Result Diagrams: 06/05/18 17:40 06/05/18 17:40 Recent Labs: Laboratory Last Values WBC 6.0 Th/cmm (4.8-10.8) 06/05/18 17:40 RBC 4.70 Mil/cmm (3.80-5.20) 06/05/18 17:40 Hgb 14.0 gm/dL (12-16) 06/05/18 17:40 Hct 40.7 % (41.0-60) L 06/05/18 17:40 MCV 86.6 fl (81-100) 06/05/18 17:40 MCH 29.7 pg (27.0-31.0) 06/05/18 17:40 MCHC Differential 34.3 pg (28.0-36.0) 06/05/18 17:40 RDW 12.8 % (11.5-20.0) 06/05/18 17:40 Plt Count 170 Th/cmm (150-400) 06/05/18 17:40 MPV 8.3 fl 06/05/18 17:40 Neutrophils % 57.3 % (40.0-80.0) 06/05/18 17:40 Lymphocytes % 26.9 % (20.0-50.0) 06/05/18 17:40 Monocytes % 8.4 % (2.0-10.0) 06/05/18 17:40 Eosinophils % 6.7 % (0.0-5.0) H 06/05/18 17:40 Basophils % 0.7 % (0.0-2.0) 06/05/18 17:40 PT 9.9 SECONDS (9.5-11.5) 06/05/18 17:40 INR 0.95 (0.5-1.4) 06/05/18 17:40 PTT (Actin FS) 26.5 SECONDS (26.0-38.0) 06/05/18 17:40 Sodium 129 mEq/L (136-145) L 06/05/18 17:40 Potassium 3.9 mEq/L (3.5-5.1) 06/05/18 17:40 Chloride 95 mEq/L (98-107) L 06/05/18 17:40 Carbon Dioxide 22.8 mEq/L (21.0-31.0) 06/05/18 17:40 Anion Gap 15.1 (7.0-16.0) 06/05/18 17:40 BUN 22 mg/dL (7-25) 06/05/18 17:40 Creatinine 0.6 mg/dL (0.6-1.2) 06/05/18 17:40 Est GFR ( Amer) > 60.0 ml/min (>90) 06/05/18 17:40 Est GFR (Non-Af Amer) > 60.0 ml/min 06/05/18 17:40 BUN/Creatinine Ratio 36.7 06/05/18 17:40 Glucose 131 mg/dL (70-105) H 06/05/18 17:40 POC Glucose 109 MG/DL (70 - 105) H 06/08/18 17:13 Whole Bld Lactic Acid 2.06 mmol/L (0.60-1.99) H* 06/05/18 20:36 Calcium 8.8 mg/dL (8.6-10.3) 06/05/18 17:40 Total Bilirubin 0.2 mg/dL (0.3-1.0) L 06/05/18 17:40 AST 17 U/L (13-39) 06/05/18 17:40 ALT 9 U/L (7-52) 06/05/18 17:40 Alkaline Phosphatase 73 U/L (34-104) 06/05/18 17:40 Creatine Kinase 107 U/L (30-223) 06/05/18 17:40 Troponin I < 0.01 ng/mL (0.01-0.05) L 06/05/18 17:40 Total Protein 6.1 gm/dL (6.0-8.3) 06/05/18 17:40 Albumin 3.9 gm/dL (3.7-5.3) 06/05/18 17:40 Globulin 2.2 gm/dL 06/05/18 17:40 Albumin/Globulin Ratio 1.8 (1.0-1.8) 06/05/18 17:40 Triglycerides 243 mg/dL (<150) H 06/05/18 17:40 Cholesterol 207 mg/dL (<200) H 06/05/18 17:40 LDL Cholesterol Direct 124 mg/dL (75-193) 06/05/18 17:40 HDL Cholesterol 74 mg/dL (23-92) 06/05/18 17:40 Urine Source MIDSTREAM 06/05/18 18:30 Urine Color YELLOW 06/05/18 18:30 Urine Clarity CLEAR (CLEAR) 06/05/18 18:30 Urine pH 6.5 (4.6 - 8.0) 06/05/18 18:30 Ur Specific [place] 1.010 (1.005-1.030) 06/05/18 18:30 Urine Protein NEGATIVE mg/dL (NEGATIVE) 06/05/18 18:30 Urine Glucose (UA) NEGATIVE mg/dL (NEGATIVE) 06/05/18 18:30 Urine Ketones NEGATIVE mg/dL (NEGATIVE) 06/05/18 18:30 Urine Blood NEGATIVE (NEGATIVE) 06/05/18 18:30 Urine Nitrate NEGATIVE (NEGATIVE) 06/05/18 18:30 Urine Bilirubin NEGATIVE (NEGATIVE) 06/05/18 18:30 Urine Urobilinogen 0.2 E.U./dL (0.2 - 1.0) 06/05/18 18:30 Ur Leukocyte Esterase NEGATIVE (NEGATIVE) 06/05/18 18:30 Urine RBC 0-2 /hpf (0-5) 06/05/18 18:30 Urine WBC 0-2 /hpf (0-5) 06/05/18 18:30 Ur Epithelial Cells FEW /lpf (FEW) 06/05/18 18:30 Urine Bacteria FEW /hpf (NONE SEEN) 06/05/18 18:30 - Physical Exam Vitals and I&O: Vital Signs Temp 97 F 06/09/18 06:12 Pulse 69 06/09/18 08:21 Resp 18 06/09/18 06:12 BP 134/82 06/09/18 08:21 Pulse Ox 98 06/09/18 06:12 Intake & Output 06/08/18 06/09/18 06/09/18 18:59 06:59 18:59 Intake Total 960 120 Balance 960 120 Intake: Oral 960 120 Other: # Voids 3 2 # Bowel Movements 1 Stool Characteristics Formed Formed Brown Brown Active Medications: Current Medications Amlodipine Besylate (Norvasc) 5 mg PO DAILY [facility] Stop: 08/05/18 08:59 Last Admin: 06/09/18 08:21 Dose: 5 mg Divalproex Sodium (Depakote Dr) 250 mg PO BID [facility]; Protocol Stop: 08/05/18 08:59 Last Admin: 06/09/18 08:21 Dose: 250 mg Donepezil HCl (Aricept) 10 mg PO HS [facility] Stop: 08/05/18 20:59 Last Admin: 06/08/18 20:57 Dose: 10 mg Duloxetine HCl (Cymbalta) 60 mg PO DAILY [facility]; Protocol Stop: 08/06/18 08:59 Last Admin: 06/09/18 08:23 Dose: 60 mg Gabapentin (Neurontin) 100 mg PO TID [facility] Stop: 08/05/18 08:59 Last Admin: 06/09/18 08:21 Dose: 100 mg Hydroxyzine HCl (Atarax) 25 mg PO Q6H PRN; Protocol PRN Reason: Itching Stop: 08/08/18 10:33 Last Admin: 06/09/18 10:39 Dose: 25 mg Ibuprofen (Motrin) 800 mg PO Q6H PRN PRN Reason: Pain (Severe) Stop: 08/05/18 00:30 Last Admin: 06/09/18 10:39 Dose: 800 mg Insulin Aspart (Novolog Insulin Sliding Scale) 0 units SUBQ ACHS [facility]; Protocol Stop: 08/05/18 07:29 Last Admin: 06/09/18 11:58 Dose: Not Given Lorazepam (Ativan) 0.5 mg PO Q4HR PRN; Protocol PRN Reason: Anxiety Stop: 07/06/18 00:24 Last Admin: 06/08/18 16:34 Dose: 0.5 mg Memantine (Namenda) 10 mg PO DAILY [facility] Stop: 08/05/18 08:59 Last Admin: 06/09/18 08:22 Dose: 10 mg Pantoprazole Sodium (Protonix) 40 mg PO QDAC [facility] Stop: 08/05/18 07:29 Last Admin: 06/09/18 06:45 Dose: 40 mg Quetiapine Fumarate (Seroquel) 100 mg PO BID [facility]; Protocol Stop: 08/05/18 08:59 Last Admin: 06/09/18 08:21 Dose: 100 mg Temazepam (Restoril) 15 mg PO HS [facility]; Protocol Stop: 08/05/18 20:59 Last Admin: 06/08/18 20:57 Dose: 15 mg General: alert HEENT: NC/AT, PERRLA, EOMI Neck: Supple, No JVD Lungs: CTAB Cardiovascular: RRR, Normal S1, Normal S2, with murmur Abdomen: soft, non-tender, globular Extremities: excoriation Neurological: no change Internal Medicine Assmt/Plan - Assessment Assessment: ASSESSMENT AND PLAN: Coronary artery disease, diabetes, obesity, hypertension, hypercholesterolemia, gastroesophageal reflux disease, Alzheimer's, psych disorder, hyponatremia, low back pain. - Plan Plan: We will provide the patient with some medical treatment including bronchodilator treatment. Continue on blood pressure medication. We will make some adjustment and continue on insulin sliding scale. Continue with current care. We will follow the patient closely. Medications were reconciled. Nutritional Asmnt/Malnutr-PDOC - Dietary Evaluation Malnutrition Findings (Please click <Entered> for more info): Nutritional Asmnt/Malnutrition Start: 06/08/18 10: 50 Text: Status: Complete Freq: Protocol: Document 06/08/18 10:50 KADEEM (Rec: 06/08/18 11:06 KADEEM LUTHER- [id number]) Nutritional Asmnt/Malnutrition Patient General Information Nutritional Screening Moderate Risk Diagnosis Psychosis Pertinent Medical Hx/Surgical Hx diabetes, hypertension, CAD, Hypercholesterolemia, GERD, Alzheimers Subjective Information Patient was admitted from extended care facility. Per nursing, patient has been tolerating current diet without difficulty, eating 75- 100% of meals. Patient was under her covers at time of visit, unable to speak with patient. Current Diet Order/ Nutrition Support Regular, NCS Patient / S.O Not Indicated Pertinent Medications Novolog, Protonix Pertinent Labs (06/05) Na 129, TAG 243, Cholesterol 207 Nutritional Hx/Data Height 1.68 m Height (Calculated Centimeters) 167.6 Current Weight (lbs) 68.039 kg Weight (Calculated Kilograms) 68.0 Weight (Calculated Grams) 56537.9 [place] Body Weight 130 % [place] Body Weight 115 Body Mass Index (BMI) 24.2 Weight Status Approriate GI Symptoms GI Symptoms None Last BM 06/07 x1 Difficult in: None Food Allergies No Cultural/Ethnic/[employer] Belief none indicated Skin Integrity/Comment: Robert 19, intact Current %PO Good (75-100%) Estimated Nutritional Goals BEE in Kcals: Using Current wt Calories/Kcals/Kg 25-30 kcal/kg (using CBW 68. 1kg) Kcals Calculated ~8283-3684 kcal/day Protein g/kg: .8-1 gm/kg Protein Calculated ~55-65 gm/day Fluid: ml ~0455-3883 ml/day Nutritional Problem 1. Problem Problem Altered nutrition related lab values related to Etiology electrolyte imbalance, possible excessive cholesterol intake aeb Signs/Symptoms: TAG 243, cholesterol 207, Na 129 Intervention/Recommendation Comments 1. Consider modifying diet to cardiac, NCS, as tolerated by patient. 2. Consider re-checking Na level; if still hyponatremic, consider fluid restriction. Expected Outcomes/Goals Expected Outcomes/Goals Na, cholesterol and TAG normalize, weight stable, oral intake >75% of meals, skin remains intact. F/U MR /-3
--- NOTE | 2018-06-09 15:36 | Progress Notes ---
DATE: 06/09/2018 SUBJECTIVE: Staff was spoken to. The patient is interviewed. Mood is noted to be irritable. Affect is constricted. Coping skills are noted to be very poor. Insight and judgment are also noted to be very much impaired. The patient has been having difficult time to cope with the stress. No side effects to the medications are noted. The patient is isolative and withdrawn. The patient, however, has not been presenting with any threats to harm self. ASSESSMENT: The patient is still depressed. PLAN: To continue the patient with the supportive therapy and encouraged the patient to verbalize the concerns rather than to act out. JOB# [id number]
[2018-06-10] MEDS: INSULIN ASPART SLIDING SCALE 100 UNITS/ML UNIT SUBQ SCH ×4 (06:50→20:43)
[2018-06-10] MEDS: Pantoprazole 40 mg EC Tab PO SCH (06:50)
--- NOTE | 2018-06-10 12:40 | Progress Notes ---
DATE: 06/10/2018 SUBJECTIVE: Staff was spoken to. The patient is interviewed. Mood is noted to be anxious. Affect is appropriate. Not suicidal or homicidal. Insight and judgment noted to be still impaired. However, the patient is stating that she has been trying to cope with the depression. The patient has been most of the time in her room. tax services manager has been spoken to. They are going to be trying to talk to the patient to see if she is okay to return back to [facility]. ASSESSMENT: The patient is still depressed. PLAN: To continue the patient with the supportive therapy and followup. JOB# [id number]
--- NOTE | 2018-06-10 13:45 | Internal Medicine Prog Note ---
Internal Medicine Subjective - Subjective Patient seen and examined:: with staff, chart reviewed Patient is:: awake, verbal, non-interactive Per staff patient has:: no adverse event, no episodes of fall, poor appetite, tolerating meds Internal Medicine Objective - Results Result Diagrams: 06/05/18 17:40 06/05/18 17:40 Recent Labs: Laboratory Last Values WBC 6.0 Th/cmm (4.8-10.8) 06/05/18 17:40 RBC 4.70 Mil/cmm (3.80-5.20) 06/05/18 17:40 Hgb 14.0 gm/dL (12-16) 06/05/18 17:40 Hct 40.7 % (41.0-60) L 06/05/18 17:40 MCV 86.6 fl (81-100) 06/05/18 17:40 MCH 29.7 pg (27.0-31.0) 06/05/18 17:40 MCHC Differential 34.3 pg (28.0-36.0) 06/05/18 17:40 RDW 12.8 % (11.5-20.0) 06/05/18 17:40 Plt Count 170 Th/cmm (150-400) 06/05/18 17:40 MPV 8.3 fl 06/05/18 17:40 Neutrophils % 57.3 % (40.0-80.0) 06/05/18 17:40 Lymphocytes % 26.9 % (20.0-50.0) 06/05/18 17:40 Monocytes % 8.4 % (2.0-10.0) 06/05/18 17:40 Eosinophils % 6.7 % (0.0-5.0) H 06/05/18 17:40 Basophils % 0.7 % (0.0-2.0) 06/05/18 17:40 PT 9.9 SECONDS (9.5-11.5) 06/05/18 17:40 INR 0.95 (0.5-1.4) 06/05/18 17:40 PTT (Actin FS) 26.5 SECONDS (26.0-38.0) 06/05/18 17:40 Sodium 129 mEq/L (136-145) L 06/05/18 17:40 Potassium 3.9 mEq/L (3.5-5.1) 06/05/18 17:40 Chloride 95 mEq/L (98-107) L 06/05/18 17:40 Carbon Dioxide 22.8 mEq/L (21.0-31.0) 06/05/18 17:40 Anion Gap 15.1 (7.0-16.0) 06/05/18 17:40 BUN 22 mg/dL (7-25) 06/05/18 17:40 Creatinine 0.6 mg/dL (0.6-1.2) 06/05/18 17:40 Est GFR ( Amer) > 60.0 ml/min (>90) 06/05/18 17:40 Est GFR (Non-Af Amer) > 60.0 ml/min 06/05/18 17:40 BUN/Creatinine Ratio 36.7 06/05/18 17:40 Glucose 131 mg/dL (70-105) H 06/05/18 17:40 POC Glucose 79 MG/DL (70 - 105) 06/10/18 06:46 Whole Bld Lactic Acid 2.06 mmol/L (0.60-1.99) H* 06/05/18 20:36 Calcium 8.8 mg/dL (8.6-10.3) 06/05/18 17:40 Total Bilirubin 0.2 mg/dL (0.3-1.0) L 06/05/18 17:40 AST 17 U/L (13-39) 06/05/18 17:40 ALT 9 U/L (7-52) 06/05/18 17:40 Alkaline Phosphatase 73 U/L (34-104) 06/05/18 17:40 Creatine Kinase 107 U/L (30-223) 06/05/18 17:40 Troponin I < 0.01 ng/mL (0.01-0.05) L 06/05/18 17:40 Total Protein 6.1 gm/dL (6.0-8.3) 06/05/18 17:40 Albumin 3.9 gm/dL (3.7-5.3) 06/05/18 17:40 Globulin 2.2 gm/dL 06/05/18 17:40 Albumin/Globulin Ratio 1.8 (1.0-1.8) 06/05/18 17:40 Triglycerides 243 mg/dL (<150) H 06/05/18 17:40 Cholesterol 207 mg/dL (<200) H 06/05/18 17:40 LDL Cholesterol Direct 124 mg/dL (75-193) 06/05/18 17:40 HDL Cholesterol 74 mg/dL (23-92) 06/05/18 17:40 Urine Source MIDSTREAM 06/05/18 18:30 Urine Color YELLOW 06/05/18 18:30 Urine Clarity CLEAR (CLEAR) 06/05/18 18:30 Urine pH 6.5 (4.6 - 8.0) 06/05/18 18:30 Ur Specific [place] 1.010 (1.005-1.030) 06/05/18 18:30 Urine Protein NEGATIVE mg/dL (NEGATIVE) 06/05/18 18:30 Urine Glucose (UA) NEGATIVE mg/dL (NEGATIVE) 06/05/18 18:30 Urine Ketones NEGATIVE mg/dL (NEGATIVE) 06/05/18 18:30 Urine Blood NEGATIVE (NEGATIVE) 06/05/18 18:30 Urine Nitrate NEGATIVE (NEGATIVE) 06/05/18 18:30 Urine Bilirubin NEGATIVE (NEGATIVE) 06/05/18 18:30 Urine Urobilinogen 0.2 E.U./dL (0.2 - 1.0) 06/05/18 18:30 Ur Leukocyte Esterase NEGATIVE (NEGATIVE) 06/05/18 18:30 Urine RBC 0-2 /hpf (0-5) 06/05/18 18:30 Urine WBC 0-2 /hpf (0-5) 06/05/18 18:30 Ur Epithelial Cells FEW /lpf (FEW) 06/05/18 18:30 Urine Bacteria FEW /hpf (NONE SEEN) 06/05/18 18:30 - Physical Exam Vitals and I&O: Vital Signs Temp 97.6 F 06/10/18 05:50 Pulse 70 06/10/18 09:07 Resp 19 06/10/18 05:50 BP 148/78 06/10/18 09:07 Pulse Ox 98 06/10/18 05:50 Intake & Output 06/09/18 06/10/18 06/10/18 18:59 06:59 18:59 Other: # Voids 2 # Bowel Movements 1 Active Medications: Current Medications Amlodipine Besylate (Norvasc) 5 mg PO DAILY [facility] Stop: 08/05/18 08:59 Last Admin: 06/10/18 09:07 Dose: 5 mg Divalproex Sodium (Depakote Dr) 250 mg PO BID [facility]; Protocol Stop: 08/05/18 08:59 Last Admin: 06/10/18 09:07 Dose: 250 mg Donepezil HCl (Aricept) 10 mg PO HS [facility] Stop: 08/05/18 20:59 Last Admin: 06/09/18 21:17 Dose: 10 mg Duloxetine HCl (Cymbalta) 60 mg PO DAILY [facility]; Protocol Stop: 08/06/18 08:59 Last Admin: 06/10/18 09:06 Dose: 60 mg Gabapentin (Neurontin) 100 mg PO TID [facility] Stop: 08/05/18 08:59 Last Admin: 06/10/18 09:07 Dose: 100 mg Hydroxyzine HCl (Atarax) 25 mg PO Q6H PRN; Protocol PRN Reason: Itching Stop: 08/08/18 10:33 Last Admin: 06/09/18 10:39 Dose: 25 mg Ibuprofen (Motrin) 800 mg PO Q6H PRN PRN Reason: Pain (Severe) Stop: 08/05/18 00:30 Last Admin: 06/10/18 10:00 Dose: 800 mg Insulin Aspart (Novolog Insulin Sliding Scale) 0 units SUBQ ACHS [facility]; Protocol Stop: 08/05/18 07:29 Last Admin: 06/10/18 11:20 Dose: Not Given Lorazepam (Ativan) 0.5 mg PO Q4HR PRN; Protocol PRN Reason: Anxiety Stop: 07/06/18 00:24 Last Admin: 06/10/18 10:00 Dose: 0.5 mg Memantine (Namenda) 10 mg PO DAILY [facility] Stop: 08/05/18 08:59 Last Admin: 06/10/18 09:06 Dose: 10 mg Pantoprazole Sodium (Protonix) 40 mg PO QDAC [facility] Stop: 08/05/18 07:29 Last Admin: 06/10/18 06:50 Dose: 40 mg Quetiapine Fumarate (Seroquel) 100 mg PO BID [facility]; Protocol Stop: 08/05/18 08:59 Last Admin: 06/10/18 09:06 Dose: 100 mg Temazepam (Restoril) 15 mg PO HS [facility]; Protocol Stop: 08/05/18 20:59 Last Admin: 06/09/18 21:17 Dose: 15 mg General: alert HEENT: NC/AT, PERRLA, EOMI Neck: Supple, No JVD Lungs: CTAB Cardiovascular: RRR, Normal S1, Normal S2, with murmur Abdomen: soft, non-tender, globular Extremities: excoriation Neurological: no change Internal Medicine Assmt/Plan - Assessment Assessment: ASSESSMENT AND PLAN: Coronary artery disease, diabetes, obesity, hypertension, hypercholesterolemia, gastroesophageal reflux disease, Alzheimer's, psych disorder, hyponatremia, low back pain. - Plan Plan: We will provide the patient with some medical treatment including bronchodilator treatment. Continue on blood pressure medication. We will make some adjustment and continue on insulin sliding scale. Continue with current care. We will follow the patient closely. Medications were reconciled. Nutritional Asmnt/Malnutr-PDOC - Dietary Evaluation Malnutrition Findings (Please click <Entered> for more info): Nutritional Asmnt/Malnutrition Start: 06/08/18 10: 50 Text: Status: Complete Freq: Protocol: Document 06/08/18 10:50 [email or web address] (Rec: 06/08/18 11:06 [email or web address] LUTHER- [email or web address]) Nutritional Asmnt/Malnutrition Patient General Information Nutritional Screening Moderate Risk Diagnosis Psychosis Pertinent Medical Hx/Surgical Hx diabetes, hypertension, CAD, Hypercholesterolemia, GERD, Alzheimers Subjective Information Patient was admitted from extended care facility. Per nursing, patient has been tolerating current diet without difficulty, eating 75- 100% of meals. Patient was under her covers at time of visit, unable to speak with patient. Current Diet Order/ Nutrition Support Regular, NCS Patient / S.O Not Indicated Pertinent Medications Novolog, Protonix Pertinent Labs (06/05) Na 129, TAG 243, Cholesterol 207 Nutritional Hx/Data Height 1.68 m Height (Calculated Centimeters) 167.6 Current Weight (lbs) 68.039 kg Weight (Calculated Kilograms) 68.0 Weight (Calculated Grams) 12202.9 [place] Body Weight 130 % [place] Body Weight 115 Body Mass Index (BMI) 24.2 Weight Status Approriate GI Symptoms GI Symptoms None Last BM 06/07 x1 Difficult in: None Food Allergies No Cultural/Ethnic/[place] Belief none indicated Skin Integrity/Comment: Robert 19, intact Current %PO Good (75-100%) Estimated Nutritional Goals BEE in Kcals: Using Current wt Calories/Kcals/Kg 25-30 kcal/kg (using CBW 68. 1kg) Kcals Calculated ~2500-3136 kcal/day Protein g/kg: .8-1 gm/kg Protein Calculated ~55-65 gm/day Fluid: ml ~1619-0782 ml/day Nutritional Problem 1. Problem Problem Altered nutrition related lab values related to Etiology electrolyte imbalance, possible excessive cholesterol intake aeb Signs/Symptoms: TAG 243, cholesterol 207, Na 129 Intervention/Recommendation Comments 1. Consider modifying diet to cardiac, NCS, as tolerated by patient. 2. Consider re-checking Na level; if still hyponatremic, consider fluid restriction. Expected Outcomes/Goals Expected Outcomes/Goals Na, cholesterol and TAG normalize, weight stable, oral intake >75% of meals, skin remains intact. F/U MR /-3
[2018-06-11] MEDS: Pantoprazole 40 mg EC Tab PO SCH (06:31)
[2018-06-11] MEDS: INSULIN ASPART SLIDING SCALE 100 UNITS/ML UNIT SUBQ SCH ×4 (06:31→21:02)
--- NOTE | 2018-06-11 11:34 | Consultation ---
DATE OF CONSULTATION: 06/07/2018 REFERRING PHYSICIAN: Cosmo Chou MD TYPE OF CONSULTATION: Psychology. HISTORY OF PRESENT ILLNESS: The patient is a 68-year-old female. The patient is a resident of [facility]. The following is by record review and by the patient's self-report. The patient is being admitted due to depression and possible psychosis. The staff at the patient's facility report that she has become suspicious and experiencing paranoid ideation, stating that someone is out to harm her. Upon interview, the patient states that she is depressed and that she has a history of schizophrenia and needs help. The patient denied any suicidal ideation, plan or intention at the time of the clinical interview. PAST MEDICAL HISTORY: Please see history and physical by Dr. Flores. PAST PSYCHIATRIC HISTORY: The patient is under the care of Dr. Garcia at her placement. The patient has had previous hospitalizations. The record indicates the patient has a history of schizoaffective disorder. SUBSTANCE ABUSE HISTORY: The patient denies any history of alcohol, tobacco or illicit drug use. PSYCHOSOCIAL HISTORY: The patient is a resident of [facility]. The patient states that she has many children, but was not specific as to how many or where they are located. The patient stated that she is not . The patient states she is estranged from her family. The patient did not answer questions about occupational or educational history or alevism affiliation. The patient denies any history of physical or sexual abuse or any current legal problems. MENTAL STATUS EXAMINATION: The patient appears to be her stated age. The patient's attitude is generally cooperative. Eye contact is fair. Speech is spontaneous. Mood is somewhat irritable and fluctuating. Affect is constricted. Thought process shows to be confused and tangential. The patient denied any suicidal ideation, plan or intention. The patient seems to be experiencing paranoid ideation. The patient states that there are people at her correction that are out to harm her. The patient denied any auditory or visual hallucinations. The patient stated that she feels depressed at times. The patient's behavior on the unit has been redirectable so far. Impulse control is limited. Concentration is fair to poor. Sensorium is alert and oriented to self and place. The patient did not participate in the memory assessment. However, immediate memory seems to be generally intact. Short term and long-term memory need further evaluation. The patient did not participate in the interpretation of proverbs. Insight is poor. Judgment is compromised. DIAGNOSTIC IMPRESSION: AXIS I: History of schizoaffective disorder. AXIS II: Deferred. AXIS III: Per Dr. Flores. TREATMENT PLAN: The patient has been seen by Dr. Chou for psychiatric evaluation and for the management of the patient's psychotropic medications. We will provide supportive psychotherapy to include reality orientation, differentiation and integration. We will provide coping strategies for chronic severe mental illness. We will encourage the patient to verbalize her concerns. We will encourage the patient to be able to demonstrate emotional and self-regulation prior to her discharge. We will provide motivational enhancement for the patient to become compliant and stay compliant with all aspects of her care and treatment. Thank you, Dr. Chou for this consult and the opportunity to participate in this patient's care. JOB# [id number] MARITA
--- NOTE | 2018-06-11 13:33 | Internal Medicine Prog Note ---
Internal Medicine Subjective - Subjective Patient seen and examined:: with staff, chart reviewed, other (per staff, pain med seeking) Patient is:: awake, verbal, non-interactive Per staff patient has:: no adverse event, no episodes of fall, poor appetite, tolerating meds Internal Medicine Objective - Results Result Diagrams: 06/05/18 17:40 06/05/18 17:40 Recent Labs: Laboratory Last Values WBC 6.0 Th/cmm (4.8-10.8) 06/05/18 17:40 RBC 4.70 Mil/cmm (3.80-5.20) 06/05/18 17:40 Hgb 14.0 gm/dL (12-16) 06/05/18 17:40 Hct 40.7 % (41.0-60) L 06/05/18 17:40 MCV 86.6 fl (81-100) 06/05/18 17:40 MCH 29.7 pg (27.0-31.0) 06/05/18 17:40 MCHC Differential 34.3 pg (28.0-36.0) 06/05/18 17:40 RDW 12.8 % (11.5-20.0) 06/05/18 17:40 Plt Count 170 Th/cmm (150-400) 06/05/18 17:40 MPV 8.3 fl 06/05/18 17:40 Neutrophils % 57.3 % (40.0-80.0) 06/05/18 17:40 Lymphocytes % 26.9 % (20.0-50.0) 06/05/18 17:40 Monocytes % 8.4 % (2.0-10.0) 06/05/18 17:40 Eosinophils % 6.7 % (0.0-5.0) H 06/05/18 17:40 Basophils % 0.7 % (0.0-2.0) 06/05/18 17:40 PT 9.9 SECONDS (9.5-11.5) 06/05/18 17:40 INR 0.95 (0.5-1.4) 06/05/18 17:40 PTT (Actin FS) 26.5 SECONDS (26.0-38.0) 06/05/18 17:40 Sodium 129 mEq/L (136-145) L 06/05/18 17:40 Potassium 3.9 mEq/L (3.5-5.1) 06/05/18 17:40 Chloride 95 mEq/L (98-107) L 06/05/18 17:40 Carbon Dioxide 22.8 mEq/L (21.0-31.0) 06/05/18 17:40 Anion Gap 15.1 (7.0-16.0) 06/05/18 17:40 BUN 22 mg/dL (7-25) 06/05/18 17:40 Creatinine 0.6 mg/dL (0.6-1.2) 06/05/18 17:40 Est GFR ( Amer) > 60.0 ml/min (>90) 06/05/18 17:40 Est GFR (Non-Af Amer) > 60.0 ml/min 06/05/18 17:40 BUN/Creatinine Ratio 36.7 06/05/18 17:40 Glucose 131 mg/dL (70-105) H 06/05/18 17:40 POC Glucose 79 MG/DL (70 - 105) 06/10/18 06:46 Whole Bld Lactic Acid 2.06 mmol/L (0.60-1.99) H* 06/05/18 20:36 Calcium 8.8 mg/dL (8.6-10.3) 06/05/18 17:40 Total Bilirubin 0.2 mg/dL (0.3-1.0) L 06/05/18 17:40 AST 17 U/L (13-39) 06/05/18 17:40 ALT 9 U/L (7-52) 06/05/18 17:40 Alkaline Phosphatase 73 U/L (34-104) 06/05/18 17:40 Creatine Kinase 107 U/L (30-223) 06/05/18 17:40 Troponin I < 0.01 ng/mL (0.01-0.05) L 06/05/18 17:40 Total Protein 6.1 gm/dL (6.0-8.3) 06/05/18 17:40 Albumin 3.9 gm/dL (3.7-5.3) 06/05/18 17:40 Globulin 2.2 gm/dL 06/05/18 17:40 Albumin/Globulin Ratio 1.8 (1.0-1.8) 06/05/18 17:40 Triglycerides 243 mg/dL (<150) H 06/05/18 17:40 Cholesterol 207 mg/dL (<200) H 06/05/18 17:40 LDL Cholesterol Direct 124 mg/dL (75-193) 06/05/18 17:40 HDL Cholesterol 74 mg/dL (23-92) 06/05/18 17:40 Urine Source MIDSTREAM 06/05/18 18:30 Urine Color YELLOW 06/05/18 18:30 Urine Clarity CLEAR (CLEAR) 06/05/18 18:30 Urine pH 6.5 (4.6 - 8.0) 06/05/18 18:30 Ur Specific [place] 1.010 (1.005-1.030) 06/05/18 18:30 Urine Protein NEGATIVE mg/dL (NEGATIVE) 06/05/18 18:30 Urine Glucose (UA) NEGATIVE mg/dL (NEGATIVE) 06/05/18 18:30 Urine Ketones NEGATIVE mg/dL (NEGATIVE) 06/05/18 18:30 Urine Blood NEGATIVE (NEGATIVE) 06/05/18 18:30 Urine Nitrate NEGATIVE (NEGATIVE) 06/05/18 18:30 Urine Bilirubin NEGATIVE (NEGATIVE) 06/05/18 18:30 Urine Urobilinogen 0.2 E.U./dL (0.2 - 1.0) 06/05/18 18:30 Ur Leukocyte Esterase NEGATIVE (NEGATIVE) 06/05/18 18:30 Urine RBC 0-2 /hpf (0-5) 06/05/18 18:30 Urine WBC 0-2 /hpf (0-5) 06/05/18 18:30 Ur Epithelial Cells FEW /lpf (FEW) 06/05/18 18:30 Urine Bacteria FEW /hpf (NONE SEEN) 06/05/18 18:30 - Physical Exam Vitals and I&O: Vital Signs Temp 98 F 06/11/18 06:12 Pulse 74 06/11/18 08:37 Resp 19 06/11/18 06:12 BP 130/89 06/11/18 08:37 Pulse Ox 97 06/11/18 06:12 Intake & Output 06/10/18 06/11/18 06/11/18 18:59 06:59 18:59 Intake Total 1700 660 Balance 1700 660 Intake: Oral 1700 660 Other: # Voids 3 2 # Bowel Movements 0 0 Active Medications: Current Medications Amlodipine Besylate (Norvasc) 5 mg PO DAILY [facility] Stop: 08/05/18 08:59 Last Admin: 06/11/18 08:37 Dose: 5 mg Divalproex Sodium (Depakote Dr) 250 mg PO BID [facility]; Protocol Stop: 08/05/18 08:59 Last Admin: 06/11/18 08:39 Dose: 250 mg Donepezil HCl (Aricept) 10 mg PO HS [facility] Stop: 08/05/18 20:59 Last Admin: 06/10/18 20:40 Dose: 10 mg Duloxetine HCl (Cymbalta) 60 mg PO DAILY [facility]; Protocol Stop: 08/06/18 08:59 Last Admin: 06/11/18 08:39 Dose: 60 mg Gabapentin (Neurontin) 100 mg PO TID [facility] Stop: 08/05/18 08:59 Last Admin: 06/11/18 08:38 Dose: 100 mg Hydroxyzine HCl (Atarax) 25 mg PO Q6H PRN; Protocol PRN Reason: Itching Stop: 08/08/18 10:33 Last Admin: 06/09/18 10:39 Dose: 25 mg Ibuprofen (Motrin) 800 mg PO Q6H PRN PRN Reason: Pain (Severe) Stop: 08/05/18 00:30 Last Admin: 06/11/18 08:38 Dose: 800 mg Insulin Aspart (Novolog Insulin Sliding Scale) 0 units SUBQ ACHS [facility]; Protocol Stop: 08/05/18 07:29 Last Admin: 06/11/18 12:11 Dose: Not Given Lorazepam (Ativan) 0.5 mg PO Q4HR PRN; Protocol PRN Reason: Anxiety Stop: 07/06/18 00:24 Last Admin: 06/10/18 20:39 Dose: 0.5 mg Memantine (Namenda) 10 mg PO DAILY [facility] Stop: 08/05/18 08:59 Last Admin: 06/11/18 08:38 Dose: 10 mg Pantoprazole Sodium (Protonix) 40 mg PO QDAC [facility] Stop: 08/05/18 07:29 Last Admin: 06/11/18 06:31 Dose: 40 mg Quetiapine Fumarate (Seroquel) 100 mg PO BID [facility]; Protocol Stop: 08/05/18 08:59 Last Admin: 06/11/18 08:39 Dose: 100 mg Temazepam (Restoril) 15 mg PO HS [facility]; Protocol Stop: 08/05/18 20:59 Last Admin: 06/10/18 20:39 Dose: 15 mg General: alert HEENT: NC/AT, PERRLA, EOMI Neck: Supple, No JVD Lungs: CTAB Cardiovascular: RRR, Normal S1, Normal S2, with murmur Abdomen: soft, non-tender, globular Extremities: excoriation Neurological: no change Internal Medicine Assmt/Plan - Assessment Assessment: ASSESSMENT AND PLAN: Coronary artery disease, diabetes, obesity, hypertension, hypercholesterolemia, gastroesophageal reflux disease, Alzheimer's, psych disorder, hyponatremia, low back pain. - Plan Plan: We will provide the patient with some medical treatment including bronchodilator treatment. Continue on blood pressure medication. We will make some adjustment and continue on insulin sliding scale. Continue with current care. We will follow the patient closely. Medications were reconciled. fall precaution Nutritional Asmnt/Malnutr-PDOC - Dietary Evaluation Malnutrition Findings (Please click <Entered> for more info): Nutritional Asmnt/Malnutrition Start: 06/08/18 10: 50 Text: Status: Complete Freq: Protocol: Document 06/08/18 10:50 KADEEM (Rec: 06/08/18 11:06 KADEEM LUTHER- [email or web address]) Nutritional Asmnt/Malnutrition Patient General Information Nutritional Screening Moderate Risk Diagnosis Psychosis Pertinent Medical Hx/Surgical Hx diabetes, hypertension, CAD, Hypercholesterolemia, GERD, Alzheimers Subjective Information Patient was admitted from extended care facility. Per nursing, patient has been tolerating current diet without difficulty, eating 75- 100% of meals. Patient was under her covers at time of visit, unable to speak with patient. Current Diet Order/ Nutrition Support Regular, NCS Patient / S.O Not Indicated Pertinent Medications Novolog, Protonix Pertinent Labs (06/05) Na 129, TAG 243, Cholesterol 207 Nutritional Hx/Data Height 1.68 m Height (Calculated Centimeters) 167.6 Current Weight (lbs) 68.039 kg Weight (Calculated Kilograms) 68.0 Weight (Calculated Grams) 43823.9 [place] Body Weight 130 % [place] Body Weight 115 Body Mass Index (BMI) 24.2 Weight Status Approriate GI Symptoms GI Symptoms None Last BM 06/07 x1 Difficult in: None Food Allergies No Cultural/Ethnic/Latter-Day Belief none indicated Skin Integrity/Comment: Robert [place], intact Current %PO Good (75-100%) Estimated Nutritional Goals BEE in Kcals: Using Current wt Calories/Kcals/Kg 25-30 kcal/kg (using CBW 68. 1kg) Kcals Calculated ~6611-7052 kcal/day Protein g/kg: .8-1 gm/kg Protein Calculated ~55-65 gm/day Fluid: ml ~2200-1671 ml/day Nutritional Problem 1. Problem Problem Altered nutrition related lab values related to Etiology electrolyte imbalance, possible excessive cholesterol intake aeb Signs/Symptoms: TAG 243, cholesterol 207, Na 129 Intervention/Recommendation Comments 1. Consider modifying diet to cardiac, NCS, as tolerated by patient. 2. Consider re-checking Na level; if still hyponatremic, consider fluid restriction. Expected Outcomes/Goals Expected Outcomes/Goals Na, cholesterol and TAG normalize, weight stable, oral intake >75% of meals, skin remains intact. F/U MR /-3
--- NOTE | 2018-06-11 19:30 | Progress Notes ---
DATE: 06/10/2018 SUBJECTIVE: The patient is seen and interviewed. Mood is anxious. Affect is mood congruent. The patient denies any suicidal ideation. The patient reports that she believes she is becoming more depressed while she has been here in the hospital. The staff reported the patient is isolative and prefers to stay in her room. OBJECTIVE: Mood is depressed, less fluctuation. Affect is mood congruent and reactive. Thought process shows to be goal oriented, but highly distractible. The patient denied any auditory or visual hallucinations or delusions. The patient's behavior has been isolative and withdrawn. ASSESSMENT: History of schizoaffective disorder. PLAN: The patient is continued with supportive psychotherapy as well as by the attending psychiatrist for medication management. We will provide reality orientation, differentiation and integration. We provided motivation for the patient to continue to follow through with her care and treatment. We provided coping strategies for chronic mental illness. The patient has been compliant with medication according to the staff. We encouraged the patient to attend the milieu therapy, i.e. group therapy for activities, etc. We started a simple cognitive behavioral therapy approach to reduce the patient's depression along with coping strategies for phase of life issues. We will continue supportive psychotherapy. JOB# [id number] MARITA
--- NOTE | 2018-06-11 21:31 | Progress Notes ---
DATE: 06/11/2018 PSYCHIATRIC PROGRESS NOTE SUBJECTIVE: Staff was spoken to. The patient is interviewed. Mood is noted to be depressed. Affect is constricted. The patient is isolative and withdrawn. Insight and judgment at this time are still impaired. Impulse control is noted to be poor. Coping skills are also noted to be very poor. The patient has been having difficult time to cope with the stress. The patient is isolative and withdrawn. No side effects to the medications are noted. ASSESSMENT: The patient is still depressed. PLAN: To continue the patient with Cymbalta. I encouraged the patient to verbalize the concerns rather than to act out. JOB# [id number]
[2018-06-12] MEDS: INSULIN ASPART SLIDING SCALE 100 UNITS/ML UNIT SUBQ SCH ×2 (06:46→13:06)
[2018-06-12] MEDS: Pantoprazole 40 mg EC Tab PO SCH (06:46)
--- NOTE | 2018-06-12 13:03 | Internal Medicine Prog Note ---
Internal Medicine Subjective - Subjective Patient seen and examined:: with staff, chart reviewed Patient is:: awake, verbal, non-interactive Per staff patient has:: no adverse event, no episodes of fall, poor appetite, tolerating meds Internal Medicine Objective - Results Result Diagrams: 06/05/18 17:40 06/05/18 17:40 Recent Labs: Laboratory Last Values WBC 6.0 Th/cmm (4.8-10.8) 06/05/18 17:40 RBC 4.70 Mil/cmm (3.80-5.20) 06/05/18 17:40 Hgb 14.0 gm/dL (12-16) 06/05/18 17:40 Hct 40.7 % (41.0-60) L 06/05/18 17:40 MCV 86.6 fl (81-100) 06/05/18 17:40 MCH 29.7 pg (27.0-31.0) 06/05/18 17:40 MCHC Differential 34.3 pg (28.0-36.0) 06/05/18 17:40 RDW 12.8 % (11.5-20.0) 06/05/18 17:40 Plt Count 170 Th/cmm (150-400) 06/05/18 17:40 MPV 8.3 fl 06/05/18 17:40 Neutrophils % 57.3 % (40.0-80.0) 06/05/18 17:40 Lymphocytes % 26.9 % (20.0-50.0) 06/05/18 17:40 Monocytes % 8.4 % (2.0-10.0) 06/05/18 17:40 Eosinophils % 6.7 % (0.0-5.0) H 06/05/18 17:40 Basophils % 0.7 % (0.0-2.0) 06/05/18 17:40 PT 9.9 SECONDS (9.5-11.5) 06/05/18 17:40 INR 0.95 (0.5-1.4) 06/05/18 17:40 PTT (Actin FS) 26.5 SECONDS (26.0-38.0) 06/05/18 17:40 Sodium 129 mEq/L (136-145) L 06/05/18 17:40 Potassium 3.9 mEq/L (3.5-5.1) 06/05/18 17:40 Chloride 95 mEq/L (98-107) L 06/05/18 17:40 Carbon Dioxide 22.8 mEq/L (21.0-31.0) 06/05/18 17:40 Anion Gap 15.1 (7.0-16.0) 06/05/18 17:40 BUN 22 mg/dL (7-25) 06/05/18 17:40 Creatinine 0.6 mg/dL (0.6-1.2) 06/05/18 17:40 Est GFR ( Amer) > 60.0 ml/min (>90) 06/05/18 17:40 Est GFR (Non-Af Amer) > 60.0 ml/min 06/05/18 17:40 BUN/Creatinine Ratio 36.7 06/05/18 17:40 Glucose 131 mg/dL (70-105) H 06/05/18 17:40 POC Glucose 79 MG/DL (70 - 105) 06/10/18 06:46 Whole Bld Lactic Acid 2.06 mmol/L (0.60-1.99) H* 06/05/18 20:36 Calcium 8.8 mg/dL (8.6-10.3) 06/05/18 17:40 Total Bilirubin 0.2 mg/dL (0.3-1.0) L 06/05/18 17:40 AST 17 U/L (13-39) 06/05/18 17:40 ALT 9 U/L (7-52) 06/05/18 17:40 Alkaline Phosphatase 73 U/L (34-104) 06/05/18 17:40 Creatine Kinase 107 U/L (30-223) 06/05/18 17:40 Troponin I < 0.01 ng/mL (0.01-0.05) L 06/05/18 17:40 Total Protein 6.1 gm/dL (6.0-8.3) 06/05/18 17:40 Albumin 3.9 gm/dL (3.7-5.3) 06/05/18 17:40 Globulin 2.2 gm/dL 06/05/18 17:40 Albumin/Globulin Ratio 1.8 (1.0-1.8) 06/05/18 17:40 Triglycerides 243 mg/dL (<150) H 06/05/18 17:40 Cholesterol 207 mg/dL (<200) H 06/05/18 17:40 LDL Cholesterol Direct 124 mg/dL (75-193) 06/05/18 17:40 HDL Cholesterol 74 mg/dL (23-92) 06/05/18 17:40 Urine Source MIDSTREAM 06/05/18 18:30 Urine Color YELLOW 06/05/18 18:30 Urine Clarity CLEAR (CLEAR) 06/05/18 18:30 Urine pH 6.5 (4.6 - 8.0) 06/05/18 18:30 Ur Specific [place] 1.010 (1.005-1.030) 06/05/18 18:30 Urine Protein NEGATIVE mg/dL (NEGATIVE) 06/05/18 18:30 Urine Glucose (UA) NEGATIVE mg/dL (NEGATIVE) 06/05/18 18:30 Urine Ketones NEGATIVE mg/dL (NEGATIVE) 06/05/18 18:30 Urine Blood NEGATIVE (NEGATIVE) 06/05/18 18:30 Urine Nitrate NEGATIVE (NEGATIVE) 06/05/18 18:30 Urine Bilirubin NEGATIVE (NEGATIVE) 06/05/18 18:30 Urine Urobilinogen 0.2 E.U./dL (0.2 - 1.0) 06/05/18 18:30 Ur Leukocyte Esterase NEGATIVE (NEGATIVE) 06/05/18 18:30 Urine RBC 0-2 /hpf (0-5) 06/05/18 18:30 Urine WBC 0-2 /hpf (0-5) 06/05/18 18:30 Ur Epithelial Cells FEW /lpf (FEW) 06/05/18 18:30 Urine Bacteria FEW /hpf (NONE SEEN) 06/05/18 18:30 - Physical Exam Vitals and I&O: Vital Signs Temp 97.2 F 06/12/18 06:18 Pulse 71 06/12/18 08:40 Resp 20 06/12/18 06:18 BP 135/78 06/12/18 08:40 Pulse Ox 95 06/12/18 06:18 Intake & Output 06/11/18 06/12/18 06/12/18 18:59 06:59 18:59 Intake Total 800 240 Balance 800 240 Intake: Oral 800 240 Other: # Voids 3 1 # Bowel Movements 1 0 Active Medications: Current Medications Amlodipine Besylate (Norvasc) 5 mg PO DAILY [facility] Stop: 08/05/18 08:59 Last Admin: 06/12/18 08:40 Dose: 5 mg Divalproex Sodium (Depakote Dr) 250 mg PO BID [facility]; Protocol Stop: 08/05/18 08:59 Last Admin: 06/12/18 08:40 Dose: 250 mg Donepezil HCl (Aricept) 10 mg PO HS [facility] Stop: 08/05/18 20:59 Last Admin: 06/11/18 20:08 Dose: 10 mg Duloxetine HCl (Cymbalta) 60 mg PO DAILY [facility]; Protocol Stop: 08/06/18 08:59 Last Admin: 06/12/18 08:39 Dose: 60 mg Gabapentin (Neurontin) 100 mg PO TID [facility] Stop: 08/05/18 08:59 Last Admin: 06/12/18 08:40 Dose: 100 mg Hydroxyzine HCl (Atarax) 25 mg PO Q6H PRN; Protocol PRN Reason: Itching Stop: 08/08/18 10:33 Last Admin: 06/09/18 10:39 Dose: 25 mg Ibuprofen (Motrin) 800 mg PO Q6H PRN PRN Reason: Pain (Severe) Stop: 08/05/18 00:30 Last Admin: 06/12/18 09:52 Dose: 800 mg Insulin Aspart (Novolog Insulin Sliding Scale) 0 units SUBQ ACHS [facility]; Protocol Stop: 08/05/18 07:29 Last Admin: 06/12/18 06:46 Dose: Not Given Lorazepam (Ativan) 0.5 mg PO Q4HR PRN; Protocol PRN Reason: Anxiety Stop: 07/06/18 00:24 Last Admin: 06/11/18 14:56 Dose: 0.5 mg Memantine (Namenda) 10 mg PO DAILY [facility] Stop: 08/05/18 08:59 Last Admin: 06/12/18 08:40 Dose: 10 mg Pantoprazole Sodium (Protonix) 40 mg PO QDAC [facility] Stop: 08/05/18 07:29 Last Admin: 06/12/18 06:46 Dose: 40 mg Quetiapine Fumarate (Seroquel) 100 mg PO BID [facility]; Protocol Stop: 08/05/18 08:59 Last Admin: 06/12/18 08:41 Dose: 100 mg Temazepam (Restoril) 15 mg PO HS [facility]; Protocol Stop: 08/05/18 20:59 Last Admin: 06/11/18 20:07 Dose: 15 mg General: alert HEENT: NC/AT, PERRLA, EOMI Neck: Supple, No JVD Lungs: CTAB Cardiovascular: RRR, Normal S1, Normal S2, with murmur Abdomen: soft, non-tender, globular Extremities: excoriation Neurological: no change Internal Medicine Assmt/Plan - Assessment Assessment: ASSESSMENT AND PLAN: Coronary artery disease, diabetes, obesity, hypertension, hypercholesterolemia, gastroesophageal reflux disease, Alzheimer's, psych disorder, hyponatremia, low back pain. - Plan Plan: We will provide the patient with some medical treatment including bronchodilator treatment. Continue on blood pressure medication. We will make some adjustment and continue on insulin sliding scale. Continue with current care. We will follow the patient closely. Medications were reconciled. fall precaution Nutritional Asmnt/Malnutr-PDOC - Dietary Evaluation Malnutrition Findings (Please click <Entered> for more info): Nutritional Asmnt/Malnutrition Start: 06/08/18 10: 50 Text: Status: Complete Freq: Protocol: Document 06/08/18 10:50 MMULISMAEL (Rec: 06/08/18 11:06 MMULHERShabbir LUTHER- [email or web address]) Nutritional Asmnt/Malnutrition Patient General Information Nutritional Screening Moderate Risk Diagnosis Psychosis Pertinent Medical Hx/Surgical Hx diabetes, hypertension, CAD, Hypercholesterolemia, GERD, Alzheimers Subjective Information Patient was admitted from extended care facility. Per nursing, patient has been tolerating current diet without difficulty, eating 75- 100% of meals. Patient was under her covers at time of visit, unable to speak with patient. Current Diet Order/ Nutrition Support Regular, NCS Patient / S.O Not Indicated Pertinent Medications Novolog, Protonix Pertinent Labs (06/05) Na 129, TAG 243, Cholesterol 207 Nutritional Hx/Data Height 1.68 m Height (Calculated Centimeters) 167.6 Current Weight (lbs) 68.039 kg Weight (Calculated Kilograms) 68.0 Weight (Calculated Grams) 74435.9 [place] Body Weight 130 % [place] Body Weight 115 Body Mass Index (BMI) 24.2 Weight Status Approriate GI Symptoms GI Symptoms None Last BM 06/07 x1 Difficult in: None Food Allergies No Cultural/Ethnic/Synagogue Belief none indicated Skin Integrity/Comment: Robert 19, intact Current %PO Good (75-100%) Estimated Nutritional Goals BEE in Kcals: Using Current wt Calories/Kcals/Kg 25-30 kcal/kg (using CBW 68. 1kg) Kcals Calculated ~6851-0797 kcal/day Protein g/kg: .8-1 gm/kg Protein Calculated ~55-65 gm/day Fluid: ml ~0895-3669 ml/day Nutritional Problem 1. Problem Problem Altered nutrition related lab values related to Etiology electrolyte imbalance, possible excessive cholesterol intake aeb Signs/Symptoms: TAG 243, cholesterol 207, Na 129 Intervention/Recommendation Comments 1. Consider modifying diet to cardiac, NCS, as tolerated by patient. 2. Consider re-checking Na level; if still hyponatremic, consider fluid restriction. Expected Outcomes/Goals Expected Outcomes/Goals Na, cholesterol and TAG normalize, weight stable, oral intake >75% of meals, skin remains intact. F/U MR /-3
--- NOTE | 2018-06-12 15:56 | Progress Notes ---
DATE: 06/12/2018 PSYCHOLOGY PROGRESS NOTE SUBJECTIVE: The patient has been seen and interviewed. The patient presents as depressed as well as withdrawn. The staff reports that the patient was having difficulty following through with staff direction and not participating in the milieu therapy. The patient states that she is depressed. Mood fluctuations seem to have lessened. OBJECTIVE: Mood depressed. Affect is constricted. Thought process depressogenic. The patient denied any hallucinations or delusions. The patient's behavior is withdrawn and isolative as well as a motivated and anhedonic and anergic. Appetite is poor, sleep is excessive. ASSESSMENT: History of schizoaffective disorder. PLAN: The patient has been seen by Dr. Chou and is continued with Lucian. This machine sign writer has provided motivational enhancement and coping strategies for phase of life issues. The patient is having difficulty following through with cognitive behavioral therapy for her depression. The patient has been encouraged to participate in the milieu therapy. Supportive psychotherapy is continued. Follow up in two days to continue treatment. JOB# [id number] [facility]ITAL[facility]
--- NOTE | 2018-06-12 23:36 | Progress Notes ---
DATE: 06/12/2018 SUBJECTIVE: Staff was spoken to. The patient is interviewed. Mood is noted to be anxious. The patient's insight and judgment are noted to be improving. Impulse control is noted to be fair. Coping skills are also noted to be fair. The patient is reporting that she has been doing fairly well and would like to continue treatment on an outpatient basis. No side effects to the medications are noted. The patient has been admitted and the patient is willing to comply with the treatment on an outpatient basis and she gets to the [facility]. No side effects to the medications are noted at this time. ASSESSMENT: The patient is stabilizing. PLAN: To discharge the patient today for followup on outpatient basis. [facility]# [id number]
== END 2018-06-12 16:05 | DRG 885 ==
LOC: ER 17:18 → GERO 22:30
DX: F25.9 Schizoaffective disorder, unspecified (principal); E11.65 Type 2 diabetes mellitus with hyperglycemia; E87.1 Hypo-osmolality and hyponatremia; N39.0 Urinary tract infection, site not specified; I10 Essential (primary) hypertension; I25.10 Atherosclerotic heart disease of native coronary artery without angina pectoris; E78.5 Hyperlipidemia, unspecified; M19.90 Unspecified osteoarthritis, unspecified site; F31.9 Bipolar disorder, unspecified; F41.9 Anxiety disorder, unspecified; I25.9 Chronic ischemic heart disease, unspecified; E86.0 Dehydration; K21.9 Gastro-esophageal reflux disease without esophagitis; G30.9 Alzheimer's disease, unspecified; F02.80 Dementia in other diseases classified elsewhere, unspecified severity, without behavioral disturbance, psychotic disturbance, mood disturbance, and anxiety; M54.5 Low back pain; E66.9 Obesity, unspecified; E78.00 Pure hypercholesterolemia, unspecified; Z88.1 Allergy status to other antibiotic agents; Z68.24 Body mass index [BMI] 24.0-24.9, adult; Z88.0 Allergy status to penicillin; Z82.49 Family history of ischemic heart disease and other diseases of the circulatory system; Z87.11 Personal history of peptic ulcer disease; Z88.2 Allergy status to sulfonamides
CPT/HCPCS: 36415-UA; 71045-TC; 72131-TC; 80053-TC; 80061-TC; 81001-TC; 82550-TC; 82948-90; 83036-90; 83605; 84484-TC; 85025-TC; 85610-TC; 85730-TC; 93005; J1815; J1956; Z7610